=== PATIENT | female | born 1930 | race African-American/Black ===

== ENCOUNTER 2016-06-18 20:08 | Inpatient (IN) | payer OTHER ==
--- NOTE | 2016-06-18 20:36 | PDOC ---
History of Present Illness - General History Source: Patient Exam Limitations: No Limitations - History of Present Illness Initial Comments: 06/18/16 20:54 Patient is a 86 year old female with significant past medical history of dementia, seizures (dx 2 years ago on Keppra), moderate dementia, COPD, hypertension and hyperlipidemia who presents to the ED with daughter with complaint of increasing ataxia and confusion. As per daughter the patient has been having difficulty walking because her gait is unsteady and she notes that she ambulates on her own. Patient also has been having difficulty sleeping Social History: Former smoker 60 yrs 1 1/2 pack a day PCP - Dr. Carranza <Nellie Franco - Last Filed: 06/18/16 23:11> <Deepthi Smith - Last Filed: 06/18/16 23:21> - General Chief Complaint: Altered Mental Status Stated Complaint: Altered Mental Status Time Seen by Provider: 06/18/16 20:15 Past History <Nellie Franco - Last Filed: 06/18/16 23:11> - Past Medical History Cardiac Disorders: Yes Dementia: Yes (FORGETFUL AT TIMES) HTN: Yes Hypercholesterolemia: Yes - Surgical History Cholecystectomy: Yes - Immunization History Immunization Up to Date: Yes - Psycho/Social/Smoking Cessation Hx Anxiety: No Suicidal Ideation: No Smoking Status: No Smoking History: Former smoker Have you smoked in the past 12 months: No Number of Cigarettes Smoked Daily: 4 If you are a former smoker, when did you quit?: 0 Information on smoking cessation initiated: No 'Breaking Loose' booklet given: 12/11/11 Hx Alcohol Use: No Drug/Substance Use Hx: No <Deepthi Smith - Last Filed: 06/18/16 23:21> - Past Medical History Allergies/Adverse Reactions: Allergies Allergy/AdvReac Type Severity Reaction Status Date / Time codeine [Codeine] AdvReac Mild Verified 06/18/16 20:27 propoxyphene HCl AdvReac Mild Verified 06/18/16 20:27 [From Darvon] Home Medications: Ambulatory Orders Aspirin [ASA -] 81 mg PO DAILY 09/25/15 Atenolol [Tenormin -] 25 mg PO BID 09/25/15 Atorvastatin Ca [Lipitor] 20 mg PO HS 09/25/15 Escitalopram Oxalate [Lexapro -] 20 mg PO DAILY 09/25/15 Furosemide [Lasix -] 20 mg PO ASDIR 09/25/15 Multivitamins [Multivit ([facility] Formulary)] 1 tab PO DAILY 09/25/15 [place]-3 Fatty Acids [Fish Oil] 300 mg PO DAILY 09/25/15 Potassium Chloride [Klor-Con 10] 10 meq PO ASDIR 09/25/15 Valsartan 40 mg PO BID 09/25/15 Levetiracetam [Keppra] 0 mg PO ASDIR 02/17/16 Review of Systems - Review of Systems Able to Perform ROS?: Yes Comments:: 06/18/16 20:55 CONSTITUTIONAL: Absent: fever, chills, diaphoresis, generalized weakness, malaise, loss of appetite HEENT: Absent: rhinorrhea, nasal congestion, throat pain, throat swelling, difficulty swallowing, mouth swelling, ear pain, eye pain, visual Changes CARDIOVASCULAR: Absent: chest pain, syncope, palpitations, irregular heart rate, lightheadedness , peripheral edema RESPIRATORY: Absent: cough, shortness of breath, dyspnea with exertion, orthopnea, wheezing, stridor, hemoptysis GASTROINTESTINAL: Absent: abdominal pain, abdominal distension, nausea, vomiting, diarrhea, constipation, melena, hematochezia GENITOURINARY: Absent: dysuria, frequency, urgency, hesitancy, hematuria, flank pain, genital pain MUSCULOSKELETAL: Absent: myalgia, arthralgia, joint swelling SKIN: Absent: rash, itching, pallor HEMATOLOGIC/IMMUNOLOGIC: Absent: easy bleeding, easy bruising, lymphadenopathy, frequent infections ENDOCRINE: Absent: unexplained weight gain, unexplained weight loss, heat intolerance, cold intolerance NEUROLOGIC: Present: confusion, unsteady gait Absent: headache, focal weakness or paresthesias, dizziness, seizure, bladder or bowel incontinence PSYCHIATRIC: Absent: anxiety, depression, suicidal or homicidal ideation, hallucinations. <Nellie Franco - Last Filed: 06/18/16 23:11> *Physical Exam - Vital Signs Last Vital Signs Temp Pulse Resp BP Pulse Ox 99.4 F 104 H 14 191/104 96 06/18/16 20:28 06/18/16 20:28 06/18/16 20:28 06/18/16 20:28 06/18/16 20:28 - Physical Exam Comments: 06/18/16 21:20 GENERAL: +Moderate dementia, poor historian. +follows simple commands, +Awake and alert x1. No acute distress. HEENT: Normocephalic, atraumatic. PERRLA, EOMI. No conjunctival pallor. Sclera are non- icteric. Moist mucous membranes. Oropharynx is clear. NECK: Supple. Full ROM. No JVD. Carotid pulses 2+ and symmetric, without bruits. No thyromegaly. No lymphadenopathy. CARDIOVASCULAR: Regular rate and rhythm. No murmurs, rubs, or gallops. Distal pulses are 2+ and symmetric. PULMONARY: No evidence of respiratory distress. Lungs clear to auscultation bilaterally. No wheezing, rales or rhonchi. ABDOMINAL: +protuberant belly. Soft. Non-tender. Non-distended. No rebound or guarding. No organomegaly. Normoactive bowel sounds. MUSCULOSKELETAL Normal range of motion at all joints. No bony deformities or tenderness. No CVA tenderness. EXTREMITIES: +Weakness in LE, no strength against gravity, +moving of all extremities. No cyanosis. No clubbing. No edema. No calf tenderness. SKIN: Warm and dry. Normal capillary refill. No rashes. No jaundice. NEUROLOGICAL: A&OX1. Cranial nerves 2-12 intact. No deficits to light touch and temperature in face, upper extremities and lower extremities. No motor deficits in the in face, upper extremities and lower extremities. Normoreflexic in the upper and lower extremities. Normal speech. PSYCHIATRIC: Cooperative. Good eye contact. Appropriate mood and affect. <Nellie Franco - Last Filed: 06/18/16 23:11> - Vital Signs Last Vital Signs Temp Pulse Resp BP Pulse Ox 99.4 F 104 H 14 191/104 96 06/18/16 20:28 06/18/16 20:28 06/18/16 20:28 06/18/16 20:28 06/18/16 20:28 <Deepthi Smith - Last Filed: 06/18/16 23:21> ED Treatment Course - LABORATORY CBC & Chemistry Diagram: 06/18/16 21:50 06/18/16 21:50 - ADDITIONAL ORDERS Additional order review: Laboratory Results 06/18/16 20:34 POC Glucometer [id number] 06/18/16 20:34 POC Glucometer [id number] <Nellie Franco - Last Filed: 06/18/16 23:11> - LABORATORY CBC & Chemistry Diagram: 06/18/16 21:50 06/18/16 21:50 <Deepthi Smith - Last Filed: 06/18/16 23:21> Medical Decision Making - Medical Decision Making 06/18/16 23:11 A call was placed to Dr. Mascorro at his service. <Nellie Franco - Last Filed: 06/18/16 23:11> *DC/Admit/Observation/Transfer - Attestations Scribe Attestion: 06/18/16 20:55 Documentation prepared by KORTNEY Majano, acting as medical transport specialist for Deepthi Smith MD. <Nellie Franco - Last Filed: 06/18/16 23:11> - Discharge Dispostion Admit: Yes <Deepthi Smith - Last Filed: 06/18/16 23:21> Diagnosis at time of Disposition: Ataxia, Weakness, Hyperglycemia Hypertension Qualifiers: Hypertension type: unspecified secondary hypertension Qualified Code(s): I15.9 - Secondary hypertension, unspecified; I15 - Secondary hypertension - Referrals Referrals: Andreas Carranza MD [Primary Care Provider] -
[2016-06-18 22:03] LABS: BASOPHIL 0.3 % (0-2.0); EOSINOPHIL 0.2 % (0-4.5); MCH 31.9 pg (25.7-33.7); MCHC 33.2 g/dl (32.0-36.0); MEAN CELL VOLUME 96.2 fl (80-96); MEAN PLT VOLUME 7.5 fl (7.5-11.1); NEUTROPHILS 79.3 % (42.8-82.8); PLATELET COUNT 236 K/MM3 (134-434); RDW 12.9 % (11.6-15.6); WHITE BLOOD COUNT 8.4 K/mm3 (4.0-10.0)
[2016-06-18 22:21] LABS: INR 1.23 (0.82-1.09); PROTHROMBIN TIME (PATIENT) 13.6 SEC (9.98-11.88)
[2016-06-18] MEDS ORDERED: levETIRAcetam 250 MG TABLET (FP) PO ONE (22:33)
[2016-06-18] MEDS ORDERED: ATORVASTATIN CA 20 MG TABLET (FP) PO ONE (22:35)
[2016-06-18] MEDS ORDERED: VALSARTAN 40 MG TABLET (FP) PO ONE (22:35)
[2016-06-18] MEDS ORDERED: ATENOLOL 25 MG TABLET (FP) PO ONE (22:36)
[2016-06-18 22:39] LABS: ALBUMIN 3.8 g/dl (3.4-5.0); ANION GAP 13 (8-16); BILIRUBIN,TOTAL 0.7 mg/dL (0.2-1.0); CALCIUM 8.7 mg/dL (8.5-10.1); CO2 27 mmol/L (21-32); GLUCOSE,RANDOM 174 mg/dL (74-106); SGOT/AST 23 U/L (15-37); SGPT/ALT 26 U/L (12-78); TOT PROT 7.7 g/dl (6.4-8.2)
[2016-06-18 22:42] LABS: ALK PHOS 87 U/L (45-117); TROPONIN I < 0.02 ng/ml (0.00-0.05)
[2016-06-18] MEDS ORDERED: ATORVASTATIN CA 40 MG TABLET (FP) ONE (22:59)
[2016-06-18] MEDS ORDERED: levETIRAcetam 500 MG TABLET (FP) PO ONE (22:59)
[2016-06-18] MEDS ORDERED: ATENOLOL 25 MG TABLET (FP) ONE (22:59)
[2016-06-18] MEDS ORDERED: VALSARTAN 80 MG TABLET (UD) ONE (23:00)
[2016-06-18] MEDS ORDERED: ONDANSETRON 4 MG/2 ML VIAL IVPB PRN (23:20)
[2016-06-19 01:18] VITALS: BMI 28.8
[2016-06-19] MEDS: SODIUM CHLORIDE 1,000 ML IV SCH ×4 (01:38→23:44)
[2016-06-19] MEDS: HEPARIN NA (PORCINE) 5,000 UNITS/ML 1ML VIAL SQ SCH ×3 (01:42→18:00)
[2016-06-19 08:28] LABS: BASOPHIL 0.4 % (0-2.0); EOSINOPHIL 0.1 % (0-4.5); MCH 32.3 pg (25.7-33.7); MCHC 33.6 g/dl (32.0-36.0); MEAN CELL VOLUME 96.1 fl (80-96); MEAN PLT VOLUME 7.9 fl (7.5-11.1); NEUTROPHILS 64.4 % (42.8-82.8); PLATELET COUNT 214 K/MM3 (134-434); RDW 12.9 % (11.6-15.6); WHITE BLOOD COUNT 6.7 K/mm3 (4.0-10.0)
[2016-06-19 09:34] LABS: CALCIUM 8.8 mg/dL (8.5-10.1); CREATININE 0.9 mg/dL (0.55-1.02); MAGNESIUM 2.2 mg/dL (1.8-2.4); PHOSPHOROUS 2.7 mg/dL (2.5-4.9)
[2016-06-19] MEDS ORDERED: PATIENT'S OWN MEDICATION (NON-FORMULARY) (Omega-3 Fatty Acids [Fish Oil] 300 MG) PO SCH (10:00)
[2016-06-19] MEDS ORDERED: PT OWN MED DRAWER 7, Y5N ONE (10:55)
[2016-06-19] MEDS: DOCUSATE SODIUM 100 MG CAPSULE (FP) PO SCH ×2 (10:58→22:35)
[2016-06-19] MEDS: VALSARTAN 40 MG TABLET (FP) PO SCH ×2 (10:58→22:35)
[2016-06-19] MEDS: ASPIRIN COATED 81 MG TABLET.EC PO SCH (10:58)
[2016-06-19] MEDS: levETIRAcetam 250 MG TABLET (FP) PO SCH ×2 (10:58→22:35)
[2016-06-19] MEDS: ATENOLOL 25 MG TABLET (FP) PO SCH ×2 (10:58→22:35)
[2016-06-19] MEDS: ESCITALOPRAM OXALATE 20 MG TABLET (FP) PO SCH (10:58)
[2016-06-19] MEDS: ASPIRIN 81 MG CHEWABLE TABLETS PO SCH (10:58)
[2016-06-19] MEDS: MULTIVITAMINS (DAILY MVI) TABLET (FP) PO SCH (10:59)
[2016-06-19] MEDS: POLYETHYLENE GLYCOL 3350 119 GM BTL PO SCH (11:00)
--- NOTE | 2016-06-19 12:08 | HP ---
Admitting History and Physical - Primary Care Physician PCP: Andreas Carranza - Admission Chief Complaint: My legs are bad History of Present Illness: Ms Guillermo is a pleasant 86 year old female who was brought in by her daughter with confusion and weakness. Patient says that her legs are feeling bad, she says they hurt and are weak. She cannot tell me the exact type of pain or how severe, she says it is in both legs and it hurts. She says she has trouble walking because they feel weak. She denies fevers, lightheadedness, passing out , chest pain, shortness of breath, nausea, vomiting, diarrhea, constipation, difficulty or pain on urination, or weakness. She is very lethargic and often falls asleep during the history. Also she often has trouble recalling answers and frequently answers questions inappropriately (eg she says her legs hurt since she left the hospital and forgot she was in the hospital). Daughter says Ms Guillermo has dementia but it has been well controlled. Yesterday she was very confused and was weak. She was also incontinent of her urine. 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 Cardiovascular: Yes: HTN, Hyperlipdemia - Past Surgical History Additional Past Surgical History: unable to obtain - Smoking History Smoking history: Former smoker Have you smoked in the past 12 months: No Aproximately how many cigarettes per day: 4 If you are a former smoker, when did you quit?: 0 - Alcohol/Substance Use Hx Alcohol Use: No History of Substance Use: reports: None - Social History Usual Living Arrangement: Yes: With Child ADL: Family Assistance History of Recent Travel: No Home Medications - Allergies Allergies/Adverse Reactions: Allergies Allergy/AdvReac Type Severity Reaction Status Date / Time codeine [Codeine] AdvReac Mild Verified 06/18/16 20:27 propoxyphene HCl AdvReac Mild Verified 06/18/16 20:27 [From Darvon] - Home Medications Home Medications: Ambulatory Orders Aspirin [ASA -] 81 mg PO DAILY 09/25/15 Atenolol [Tenormin -] 25 mg PO BID 09/25/15 Atorvastatin Ca [Lipitor] 20 mg PO HS 09/25/15 Escitalopram Oxalate [Lexapro -] 20 mg PO DAILY 09/25/15 Furosemide [Lasix -] 20 mg PO ASDIR 09/25/15 Multivitamins [Multivit ([facility] Formulary)] 1 tab PO DAILY 09/25/15 [place]-3 Fatty Acids [Fish Oil] 300 mg PO DAILY 09/25/15 Potassium Chloride [Klor-Con 10] 10 meq PO ASDIR 09/25/15 Valsartan 40 mg PO BID 09/25/15 Levetiracetam [Keppra] 0 mg PO ASDIR 02/17/16 Family Disease History - Family Disease History Family History: Unable to Obtain Review of Systems Findings/Remarks: Full review of systems obtained, however may be inaccurate secondary to mental status but as per HPI. Physical Examination Vital Signs: Vital Signs Temperature 100.5 F H 06/19/16 09:00 Pulse Rate 89 06/19/16 09:00 Respiratory Rate 18 06/19/16 09:00 Blood Pressure 139/93 06/19/16 09:00 O2 Sat by Pulse Oximetry (%) 95 06/19/16 00:56 Constitutional: Yes: No Distress, Other (lethargic, easily arousable, confused) Eyes: Yes: Conjunctiva Clear, PERRL HENT: Yes: Atraumatic, Normocephalic Cardiovascular: Yes: Regular Rate and Rhythm. No: Gallop, Murmur, Rub Respiratory: Yes: Regular, CTA Bilaterally. No: Rales, Rhonchi, Wheezes Gastrointestinal: Yes: Normal Bowel Sounds, Soft. No: Distention, Tenderness Extremities: Yes: WNL Edema: No Labs: CBC, BMP 06/19/16 06:30 06/19/16 06:30 Imaging - Results Chest X-ray: Report Reviewed, Image Reviewed Cat Scan: Report Reviewed Problem List - Problems (1) SIRS (systemic inflammatory response syndrome) Assessment/Plan: -patient with fevers and AMS, consistent with SIRS -CXR negative -UA negative for signs of infection -gentle hydration -cultures sent -will hold on antibiotics until urine culture results -if positive gram stain or showing growth, will start antibiotics -tylenol for fevers -check flu swab Code(s): R65.10 - SIRS OF NON-INFECTIOUS ORIGIN W/O ACUTE ORGAN DYSFUNCTION (2) Metabolic encephalopathy Assessment/Plan: -secondary to SIRS -gentle hydration -follow up cultures for infectious source Code(s): G93.41 - METABOLIC ENCEPHALOPATHY (3) Ataxia Assessment/Plan: -case d/w neurology -obtain MRI Code(s): R27.0 - ATAXIA, UNSPECIFIED (4) Hypertension Assessment/Plan: -continue valsartan and atenolol Code(s): I10 - ESSENTIAL (PRIMARY) HYPERTENSION Qualifiers: Hypertension type: unspecified secondary hypertension Qualified Code(s) : I15.9 - Secondary hypertension, unspecified; I15 - Secondary hypertension (5) Weakness Assessment/Plan: -PT consulted -fall precautions -neurology evaluating Code(s): R53.1 - WEAKNESS (6) Seizure Assessment/Plan: -continue keppra Code(s): R56.9 - UNSPECIFIED CONVULSIONS
[2016-06-19 12:56] LABS: URINE APPEARANCE CLEAR; URINE BILIRUBIN NEGATIVE (NEGATIVE); URINE COLOR YELLOW; URINE GLUCOSE (UA) NEGATIVE (NEGATIVE); URINE KETONE NEGATIVE (NEGATIVE); URINE LEUK ESTERASE NEGATIVE (NEGATIVE); URINE NITRITE NEGATIVE (NEGATIVE); URINE PROTEIN NEGATIVE (NEGATIVE); URINE UROBILINOGEN NEGATIVE E.U./dl (0.2-1.0)
[2016-06-19 12:57] LABS: URINE BLOOD 1+ (NEGATIVE)
--- NOTE | 2016-06-19 13:29 | CONSULT ---
Consult Consult Specialty:: Neurology Reason for Consultation:: Gait disturbance - History of Present Illness History of Present Illness: 86 year old woman with history of dementia, epilepsy maintained on keppra, COPD , hypertension and hyperlipidemia, presented to the ED with increasing ataxia and confusion. The patient as per records has had increasing difficulty with ambulating and previously was able to ambulate independently. The patient has been having difficulty sleeping and records note confusion. CT head shows no acute changes. Patient at bedside awake, alert, following commands. Able to lift both extremities against gravity but unable to sustain. 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 Cardio/Vascular: Yes: HTN Pulmonary: Yes: COPD - Alcohol/Substance Use Hx Alcohol Use: No - Smoking History Smoking history: Former smoker Have you smoked in the past 12 months: No Aproximately how many cigarettes per day: 4 If you are a former smoker, when did you quit?: 0 Home Medications - Allergies Allergies/Adverse Reactions: Allergies Allergy/AdvReac Type Severity Reaction Status Date / Time codeine [Codeine] AdvReac Mild Verified 06/18/16 20:27 propoxyphene HCl AdvReac Mild Verified 06/18/16 20:27 [From Darvon] - Home Medications Home Medications: Ambulatory Orders Aspirin [ASA -] 81 mg PO DAILY 09/25/15 Atenolol [Tenormin -] 25 mg PO BID 09/25/15 Atorvastatin Ca [Lipitor] 20 mg PO HS 09/25/15 Escitalopram Oxalate [Lexapro -] 20 mg PO DAILY 09/25/15 Furosemide [Lasix -] 20 mg PO ASDIR 09/25/15 Multivitamins [Multivit ([facility] Formulary)] 1 tab PO DAILY 09/25/15 [place]-3 Fatty Acids [Fish Oil] 300 mg PO DAILY 09/25/15 Potassium Chloride [Klor-Con 10] 10 meq PO ASDIR 09/25/15 Valsartan 40 mg PO BID 09/25/15 Levetiracetam [Keppra] 0 mg PO ASDIR 02/17/16 Family Disease History - Family Disease History Family History: Denies Review of Systems - Review of Systems Constitutional: reports: No Symptoms Eyes: reports: No Symptoms HENT: reports: No Symptoms Cardiovascular: reports: No Symptoms Respiratory: reports: No Symptoms Neurological: reports: Unsteady Gait Physical Exam Vital Signs: Vital Signs Temperature 100.5 F H 06/19/16 09:00 Pulse Rate 89 06/19/16 09:00 Respiratory Rate 18 06/19/16 09:00 Blood Pressure 139/93 06/19/16 09:00 O2 Sat by Pulse Oximetry (%) 96 06/19/16 09:00 Constitutional: Yes: No Distress Eyes: Yes: Conjunctiva Clear, EOM Intact HENT: Yes: Atraumatic, Normocephalic Cardiovascular: Yes: S1, S2 Respiratory: Yes: Regular Neurological: Yes: Alert, Cran Nerves II-XII Intact, Other (patient awake, alert , able to follow simple commands blinks to visual threat bilterally, face symmetric, tongue midline moving all extremities spontaneously. can lift both arms against gravity and able to sustain, able to lift but unable to sustain lower extremities against gravity) Labs: CBC, BMP 06/19/16 06:30 06/19/16 06:30 Assessment/Plan 86 year old woman with history of dementia, epilepsy maintained on keppra, COPD , hypertension and hyperlipidemia, presented to the ED with increasing ataxia and confusion. The patient as per records has had increasing difficulty with ambulating and previously was able to ambulate independently. The patient has been having difficulty sleeping and records note confusion. CT head shows no acute changes. Patient at bedside awake, alert, following commands. Able to lift both extremities against gravity but unable to sustain. Gait instability CT head no acute findings Recommend MRI brain without contrast to rule out stroke, if negative will consider MRI L/S spine to rule out spinal stenosis as cause Physical and occupational therapy Confusion, history of dementia Unclear of baseline Recommend infectious workup Will order EEG Will follow
--- NOTE | 2016-06-19 13:31 | EKG ---
Test Reason : Blood Pressure : / mmHG Vent. Rate : 097 BPM Atrial Rate : 097 BPM P-R Int : 162 ms QRS Dur : 104 ms QT Int : 370 ms P-R-T Axes : 061 -06 019 degrees QTc Int : 469 ms NORMAL SINUS RHYTHM POSSIBLE LEFT ATRIAL ENLARGEMENT LEFT VENTRICULAR HYPERTROPHY NONSPECIFIC ST ABNORMALITY ABNORMAL ECG WHEN COMPARED WITH ECG OF 25-SEP-2015 09:00, VENT. RATE HAS INCREASED BY 33 BPM Confirmed by NICOLE SARAVIA MD ([id number]) on 06/19/2016 1:31:01 PM Referred By: Confirmed By:NICOLE SARAVIA MD
[2016-06-19 14:26] LABS: URINE MUCUS FEW; URINE RBC 12 /hpf (0-3); URINE WBC 1 /hpf (3-5)
[2016-06-19] MEDS: ATORVASTATIN CA 20 MG TABLET (FP) PO SCH (22:35)
[2016-06-20] MEDS: ACETAMINOPHEN 325 MG TABLET (FP) PO PRN (01:43)
[2016-06-20] MEDS: HEPARIN NA (PORCINE) 5,000 UNITS/ML 1ML VIAL SQ SCH ×3 (01:44→17:23)
[2016-06-20] MEDS: DOCUSATE SODIUM 100 MG CAPSULE (FP) PO SCH ×2 (10:58→22:10)
[2016-06-20] MEDS: ASPIRIN 81 MG CHEWABLE TABLETS PO SCH (10:58)
[2016-06-20] MEDS: MULTIVITAMINS (DAILY MVI) TABLET (FP) PO SCH (10:58)
[2016-06-20] MEDS: VALSARTAN 40 MG TABLET (FP) PO SCH ×2 (10:58→22:10)
[2016-06-20] MEDS: ASPIRIN COATED 81 MG TABLET.EC PO SCH (10:59)
[2016-06-20] MEDS: levETIRAcetam 250 MG TABLET (FP) PO SCH ×2 (10:59→22:10)
[2016-06-20] MEDS: ATENOLOL 25 MG TABLET (FP) PO SCH ×2 (10:59→22:10)
[2016-06-20] MEDS: ESCITALOPRAM OXALATE 20 MG TABLET (FP) PO SCH (11:00)
[2016-06-20] MEDS: POLYETHYLENE GLYCOL 3350 119 GM BTL PO SCH (11:02)
--- NOTE | 2016-06-20 12:07 | PN ---
Progress Note (short form) - Note Progress Note: Neurology follow up Consult Specialty:: Neurology Reason for Consultation:: Gait disturbance - History of Present Illness History of Present Illness: 86 year old woman with history of dementia, epilepsy maintained on keppra, COPD , hypertension and hyperlipidemia, presented to the ED with increasing ataxia and confusion. The patient as per records has had increasing difficulty with ambulating and previously was able to ambulate independently. The patient has been having difficulty sleeping and records note confusion. CT head shows no acute changes. Patient at bedside awake, alert, following commands. Able to lift both extremities against gravity but unable to sustain. 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: Dementia Cardio/Vascular: Yes: HTN Pulmonary: Yes: COPD - Alcohol/Substance Use Hx Alcohol Use: No - Smoking History Smoking history: Former smoker Have you smoked in the past 12 months: No Aproximately how many cigarettes per day: 4 If you are a former smoker, when did you quit?: 0 Home Medications - Allergies Allergies/Adverse Reactions: Allergies Allergy/AdvReac Type Severity Reaction Status Date / Time codeine [Codeine] AdvReac Mild Verified 06/18/16 20:27 propoxyphene HCl AdvReac Mild Verified 06/18/16 20:27 [From Darvon] - Home Medications Home Medications: Ambulatory Orders Aspirin [ASA -] 81 mg PO DAILY 09/25/15 Atenolol [Tenormin -] 25 mg PO BID 09/25/15 Atorvastatin Ca [Lipitor] 20 mg PO HS 09/25/15 Escitalopram Oxalate [Lexapro -] 20 mg PO DAILY 09/25/15 Furosemide [Lasix -] 20 mg PO ASDIR 09/25/15 Multivitamins [Multivit ([facility] Formulary)] 1 tab PO DAILY 09/25/15 [place]-3 Fatty Acids [Fish Oil] 300 mg PO DAILY 09/25/15 Potassium Chloride [Klor-Con 10] 10 meq PO ASDIR 09/25/15 Valsartan 40 mg PO BID 09/25/15 Levetiracetam [Keppra] 0 mg PO ASDIR 02/17/16 Family Disease History - Family Disease History Family History: Denies Review of Systems - Review of Systems Constitutional: reports: No Symptoms Eyes: reports: No Symptoms HENT: reports: No Symptoms Cardiovascular: reports: No Symptoms Respiratory: reports: No Symptoms Neurological: reports: Unsteady Gait Physical Exam Constitutional: Yes: No Distress Eyes: Yes: Conjunctiva Clear, EOM Intact HENT: Yes: Atraumatic, Normocephalic Cardiovascular: Yes: S1, S2 Respiratory: Yes: Regular Neurological: Yes: Alert, Cran Nerves II-XII Intact, Other (patient awake, alert , able to follow simple commands blinks to visual threat bilterally, face symmetric, tongue midline moving all extremities spontaneously against gravity) Assessment/Plan 86 year old woman with history of dementia, epilepsy maintained on keppra, COPD , hypertension and hyperlipidemia, presented to the ED with increasing ataxia and confusion. The patient as per records has had increasing difficulty with ambulating and previously was able to ambulate independently. The patient has been having difficulty sleeping and records note confusion. Today appears more awake with improvement in neuro exam. CT head shows no acute changes MRI brain no evidence of acute stroke Gait instability, altered mental status Likely related to metabolic encephalopathy in setting of SIRS MRI brain without contrast shows no evidence of acute stroke Continue current medical management Physical therapy Please call if further questions
--- NOTE | 2016-06-20 12:53 | PN ---
Physical Exam: SUBJECTIVE: Patient seen and examined at bedside. Feels a little stronger, walked to the bathroom with assistance. Denies fever, sweats, chills. Denies n/v /d. Has burning on urination and frequency at times, cannot recall if recently. Mild loose cough. 90-pack per year smoker, quit last year. OBJECTIVE: Vital Signs Period Temp Pulse Resp BP Sys/Conner Pulse Ox Last 24 Hr 98.4 F-102.4 F 74-90 18-20 135-147/58-90 94-96 GENERAL: The patient is awake, alert, and fully oriented, in no acute distress. HEAD: Normal with no signs of trauma. EYES: PERRL, extraocular movements intact, sclera anicteric, conjunctiva clear. No ptosis. LUNGS: Bibasilar crackles, no wheezing, no rhonchi, no accessory muscle use. HEART: Regular rate and rhythm, S1, S2 without murmur, rub or gallop. ABDOMEN: Soft, nontender, nondistended, normoactive bowel sounds, no guarding, no rebound, no hepatosplenomegaly, no masses. EXTREMITIES: 2+ pulses, warm, well-perfused, no edema. NEUROLOGICAL: Cranial nerves II through XII grossly intact. Normal speech, gait not observed. Active Medications Generic Name Dose Route Start Last Admin Trade Name Freq PRN Reason Stop Dose Admin Acetaminophen 650 mg 06/18/16 23:20 06/20/16 01:43 Tylenol - PO 650 mg Q4H PRN Administration FEVER OR PAIN Aspirin 81 mg 06/19/16 10:00 06/20/16 10:59 Ecotrin - PO 81 mg DAILY JAME Administration Aspirin 81 mg 06/19/16 10:00 06/20/16 10:58 Asa - PO 81 mg DAILY JAME Administration Atenolol 25 mg 06/19/16 10:00 06/20/16 10:59 Tenormin - PO 25 mg BID JAME Administration Atorvastatin Calcium 20 mg 06/19/16 22:00 06/19/16 22:35 Lipitor - PO 20 mg HS JAME Administration Docusate Sodium 100 mg 06/19/16 10:00 06/20/16 10:58 Colace - PO 100 mg BID JAME Administration Escitalopram Oxalate 20 mg 06/19/16 10:00 06/20/16 11:00 Lexapro - PO 20 mg DAILY JAME Administration Heparin Sodium (Porcine) 5,000 unit 06/19/16 02:00 06/20/16 10:59 Heparin - SQ 5,000 unit Q8H-IV JAME Administration Sodium Chloride 1,000 mls @ 42 mls/hr 06/18/16 23:30 06/19/16 23:44 Normal Saline - IV Not Given ASDIR JAME Levetiracetam 250 mg 06/19/16 10:00 06/20/16 10:59 Keppra - PO 250 mg BID JAME Administration Multivitamins/Minerals/Vitamin C 1 tab 06/19/16 10:00 06/20/16 10:58 Tab-A-Vit - PO 1 tab DAILY JAME Administration Ondansetron HCl 4 mg 06/18/16 23:20 Zofran Injection IVPB Q6H PRN NAUSEA Polyethylene Glycol 17 gm 06/19/16 10:00 06/20/16 11:02 Miralax (For Daily Use) - PO 17 gm DAILY JAME Administration Valsartan 40 mg 06/19/16 10:00 06/20/16 10:58 Diovan - PO 40 mg BID JAME Administration ASSESSMENT/PLAN 86 year-old female with a PMH of HTN, HLD, COPD, seizure disorder, dementia, and migraines, admitted for generalized weakness, ataxia, and mental confusion. SIRS Fever of uncertain etiology Metabolic encephalopathy --spike to 102.4 overnight --blood cultures NGTD --patient complains of dysuria and frequency at times, but cannot recall if recent (confused); UA & UC negative --flu negative; RSV pending; Legionella urine ordered --CXR no focal infiltrates --will get CT chest, abdomen, pelvis Ataxia --CT had and MRI brain show no acute processes --improved today, continue PT Hypertension --BP well-controlled --continue Valsartan, atenolol Hyperlipidemia --continue Lipitor COPD, chronic --CT chest pending --duonebs PRN Seizure disorder --continue Keppra Dementia --on no meds Migraines --continue Lexapro F/E/N Fluids: NS @ 42mL/hr Electrolytes: replete as indicated Nutrition: DVT prophylaxis: subq heparin, oob, ambulation Rehab PT eval Daily PT Dispo: continues to require inpatient care. Full Code. Visit type - Emergency Visit Emergency Visit: Yes ED Registration Date: 06/19/16 Care time: The patient presented to the Emergency Department on the above date and was hospitalized for further evaluation of their emergent condition. - New Patient This patient is new to me today: Yes Date on this admission: 06/20/16 - Critical Care Critical Care patient: No
[2016-06-20] MEDS ORDERED: ALBUTEROL SO4 2.5/IPRATROPIUM 0.5 INH SOL 3 ML VIAL.NEB. NEB PRN (13:15)
[2016-06-20 13:45] LABS: BASOPHIL 0.6 % (0-2.0); EOSINOPHIL 1.2 % (0-4.5); MCH 32.3 pg (25.7-33.7); MCHC 33.4 g/dl (32.0-36.0); MEAN CELL VOLUME 96.7 fl (80-96); MEAN PLT VOLUME 7.5 fl (7.5-11.1); PLATELET COUNT 188 K/MM3 (134-434); RDW 12.9 % (11.6-15.6); WHITE BLOOD COUNT 4.4 K/mm3 (4.0-10.0)
[2016-06-20 14:25] LABS: BILIRUBIN,TOTAL 0.6 mg/dL (0.2-1.0); CALCIUM 8.3 mg/dL (8.5-10.1); CREATININE 1.1 mg/dL (0.55-1.02); MAGNESIUM 2.2 mg/dL (1.8-2.4); PHOSPHOROUS 2.8 mg/dL (2.5-4.9); TOT PROT 6.3 g/dl (6.4-8.2)
[2016-06-20] MEDS: ATORVASTATIN CA 20 MG TABLET (FP) PO SCH (22:10)
[2016-06-21] MEDS: HEPARIN NA (PORCINE) 5,000 UNITS/ML 1ML VIAL SQ SCH ×2 (02:00→09:50)
[2016-06-21 08:09] LABS: BASOPHIL 0.6 % (0-2.0); EOSINOPHIL 1.2 % (0-4.5); MCH 33.4 pg (25.7-33.7); MCHC 34.9 g/dl (32.0-36.0); MEAN CELL VOLUME 95.7 fl (80-96); MEAN PLT VOLUME 7.8 fl (7.5-11.1); NEUTROPHILS 40.4 % (42.8-82.8); PLATELET COUNT 187 K/MM3 (134-434); RDW 12.7 % (11.6-15.6); WHITE BLOOD COUNT 4.8 K/mm3 (4.0-10.0)
[2016-06-21 09:00] LABS: ALBUMIN 2.9 g/dl (3.4-5.0); ALK PHOS 62 U/L (45-117); ANION GAP 10 (8-16); BILIRUBIN,TOTAL 0.7 mg/dL (0.2-1.0); CO2 27 mmol/L (21-32); CREATININE 0.8 mg/dL (0.55-1.02); GLUCOSE,RANDOM 95 mg/dL (74-106); MAGNESIUM 2.1 mg/dL (1.8-2.4); PHOSPHOROUS 2.9 mg/dL (2.5-4.9); SGOT/AST 51 U/L (15-37); SGPT/ALT 41 U/L (12-78)
[2016-06-21] MEDS: ASPIRIN COATED 81 MG TABLET.EC PO SCH (09:50)
[2016-06-21] MEDS: ASPIRIN 81 MG CHEWABLE TABLETS PO SCH (09:50)
[2016-06-21] MEDS: levETIRAcetam 250 MG TABLET (FP) PO SCH ×2 (09:50→21:34)
[2016-06-21] MEDS: ESCITALOPRAM OXALATE 20 MG TABLET (FP) PO SCH (09:50)
[2016-06-21] MEDS: ATENOLOL 25 MG TABLET (FP) PO SCH ×2 (09:50→21:34)
[2016-06-21] MEDS: VALSARTAN 40 MG TABLET (FP) PO SCH ×2 (09:50→21:34)
[2016-06-21] MEDS: MULTIVITAMINS (DAILY MVI) TABLET (FP) PO SCH (09:50)
[2016-06-21] MEDS: DOCUSATE SODIUM 100 MG CAPSULE (FP) PO SCH ×2 (09:50→21:34)
[2016-06-21] MEDS: POLYETHYLENE GLYCOL 3350 119 GM BTL PO SCH (09:55)
--- NOTE | 2016-06-21 13:25 | PN ---
Progress Note, Physician Chief Complaint: ID Patient describes couph chest congestion headaches and weakness loss of balance prior to admission Still congested and couphing Fevers as noted - Current Medication List Current Medications: Active Medications Acetaminophen (Tylenol -) 650 mg PO Q4H PRN PRN Reason: FEVER OR PAIN Last Admin: 06/20/16 01:43 Dose: 650 mg Albuterol/Ipratropium (Duoneb -) 1 amp NEB Q6H PRN PRN Reason: SHORTNESS OF BREATH Aspirin (Ecotrin -) 81 mg PO DAILY [facility] Last Admin: 06/21/16 09:50 Dose: 81 mg Aspirin (Asa -) 81 mg PO DAILY [facility] Last Admin: 06/21/16 09:50 Dose: 81 mg Atenolol (Tenormin -) 25 mg PO BID [facility] Last Admin: 06/21/16 09:50 Dose: 25 mg Atorvastatin Calcium (Lipitor -) 20 mg PO HS [facility] Last Admin: 06/20/16 22:10 Dose: 20 mg Docusate Sodium (Colace -) 100 mg PO BID [facility] Last Admin: 06/21/16 09:50 Dose: 100 mg Escitalopram Oxalate (Lexapro -) 20 mg PO DAILY [facility] Last Admin: 06/21/16 09:50 Dose: 20 mg Heparin Sodium (Porcine) (Heparin -) 5,000 unit SQ Q8H-IV [facility] Last Admin: 06/21/16 09:50 Dose: 5,000 unit Sodium Chloride (Normal Saline -) 1,000 mls @ 42 mls/hr IV ASDIR [facility] Last Admin: 06/19/16 23:44 Dose: Not Given Levetiracetam (Keppra -) 250 mg PO BID [facility] Last Admin: 06/21/16 09:50 Dose: 250 mg Multivitamins/Minerals/Vitamin C (Tab-A-Vit -) 1 tab PO DAILY [facility] Last Admin: 06/21/16 09:50 Dose: 1 tab Ondansetron HCl (Zofran Injection) 4 mg IVPB Q6H PRN PRN Reason: NAUSEA Polyethylene Glycol (Miralax (For Daily Use) -) 17 gm PO DAILY [facility] Last Admin: 06/21/16 09:55 Dose: 17 gm Valsartan (Diovan -) 40 mg PO BID [facility] Last Admin: 06/21/16 09:50 Dose: 40 mg - Objective Vital Signs: Vital Signs Temperature 99.3 F 06/21/16 06:00 Pulse Rate 83 06/21/16 06:00 Respiratory Rate 20 06/21/16 06:00 Blood Pressure 163/81 06/21/16 06:00 O2 Sat by Pulse Oximetry (%) 94 L 06/20/16 21:00 Constitutional: Yes: Well Nourished, No Distress HENT: Yes: WNL, Atraumatic Neck: Yes: WNL, Supple Respiratory: Yes: WNL, Regular, CTA Bilaterally. No: Rales, Rhonchi Gastrointestinal: Yes: WNL, Normal Bowel Sounds. No: Tenderness Edema: No Labs: CBC, BMP 06/21/16 06:30 06/21/16 06:30 INR, PTT INR 1.23 (0.82-1.09) H 06/18/16 21:50 Problem List - Problems (1) Fever Code(s): R50.9 - FEVER, UNSPECIFIED (2) Pneumonia Code(s): J18.9 - PNEUMONIA, UNSPECIFIED ORGANISM Assessment/Plan Microbiology 06/19/16 19:41 Nasopharyngeal Swab Influenza Types A,B Antigen (JOHANA) - Final 06/19/16 19:41 Nasopharyngeal Swab - Final 06/19/16 12:15 Urine - Urine - Catheterized Urine Culture - Final NO GROWTH OBTAINED 06/19/16 19:41 Nasopharyngeal Swab Respiratory Virus Panel - Preliminary 06/19/16 16:00 Blood - Peripheral Venous Blood Culture - Preliminary NO GROWTH OBTAINED AFTER 24 HOURS, INCUBATION TO CONTINUE FOR 4 DAYS. 06/19/16 15:50 Blood - Peripheral Venous Blood Culture - Preliminary NO GROWTH OBTAINED AFTER 24 HOURS, INCUBATION TO CONTINUE FOR 4 DAYS. Laboratory Tests 06/20/16 06/20/16 06/21/16 13:20 13:20 06:30 WBC 4.8 Hgb 13.1 Hct 37.7 Plt Count 187 Monocytes % 16.3 H ESR 20 BUN C-Reactive Protein 1.1 H Total Protein Albumin 06/21/16 06:30 WBC Hgb Hct Plt Count Monocytes % ESR BUN 14 D C-Reactive Protein Total Protein 6.0 L Albumin 2.9 L Assessment Febrile illness with couph congestion fever ? bronchitis vs early pneumonia in this 86 year old heavy smoker Plan Ceftriaxone 1 gram with switch to oral cefuroxime or Vantin if afebrile soon Discussed with Siobhan Melvin MD
[2016-06-21] MEDS: CEFTRIAXONE 50 ML IVPB SCH (15:09)
--- NOTE | 2016-06-21 16:36 | CONS ---
DATE OF CONSULTATION: DATE OF DICTATION: 06/21/2016 INFECTIOUS DISEASE CONSULTATION REASON FOR CONSULTATION: The patient is an 86-year-old female who I am asked to see for evaluation of fever. 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 She is also known to have COPD, hypertension, and hyperlipidemia, and admits to heavy smoking over the past years, having quit several years ago. She was admitted through the emergency room with increasing ataxia and confusion at home. The records indicate difficulty ambulating, and she usually is able to get around without assistance at home living with family members. She had a CAT scan on admission which showed no acute change. Subsequently, she was found to have intermittent low grade temperatures. Cultures were obtained on June 19 which are no growth blood and urine. An influenza screen was also obtained. She has had intermittent fever as high as 101 the following admission. Currently her temperature is 99.3. She appears alert, lucid, and oriented. She notes chest congestion and coughing for several days noting that while home, she was also experiencing headaches but denied any recall of fever. She states she got influenza vaccine this year, and her flu screen here is negative. The patient continues to cough with chest congestion. PAST MEDICAL HISTORY: As noted above. CURRENT MEDICATIONS: Include Diovan, Keppra, lexapro. ALLERGIES: CODEINE. 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 No recent travel. Pets include a dog at home. Denies alcohol use. No history of substance abuse. FAMILY HISTORY: Noncontributory. REVIEW OF SYSTEMS: Respiratory: Chest congestion with nonproductive cough, no hemoptysis. Cardiac: No chest pain, palpitations, syncope, murmur. Gastrointestinal: No weight loss, abdominal pain, nausea, vomiting, diarrhea. Genitourinary: No dysuria, hematuria, urinary frequency. PHYSICAL EXAMINATION: General: She was a pleasant alert woman with a temperature of 99.3, pulse 83, blood pressure 163/81, respirations 20. Neck: Supple with no adenopathy. Lungs: With coarse rhonchi and rales noted in the left chest. Heart: S1, S2. Regular rhythm without audible murmur. Abdomen: Soft. Nontender. No hepatosplenomegaly. Extremities: Without clubbing, cyanosis, or edema. The chest CT scan obtained on the shows atelectasis in the left base with trace pleural effusion, cannot rule out infiltrate. Abdominal CT scan shows no evidence of any acute disease with mention made of some subcutaneous air in the right anterior abdominal wall and stranding on the left, most likely iatrogenic. The white count is 4.8 with a hemoglobin of 13.1, platelets of 187. BUN 14, creatinine 0.8, liver enzymes within normal limits. CRP of 1.1. Sedimentation rate of 20. UA with 12 RBCs, 1 WBC. ASSESSMENT: An 86-year-old female with a history of dementia presents with loss of balance at home with difficulty ambulating, found to be febrile with a history of coughing with chest congestion which preceded her admission. Clinically, patient sounds as though she could have pneumonia. She has chronic obstructive pulmonary disease with a history of heavy smoking. At this point, I would treat her for chronic obstructive pulmonary disease, possible pneumonia. Will give ceftriaxone 1 g IV q.24 hours. If her temperature stays down, she can be switched to an oral cephalosporin such as cefuroxime or Vantin to complete 5-7 day course of treatment. Case was discussed with . RAVEN HERNANDEZ M.D. RENALDO/[id number]
--- NOTE | 2016-06-21 19:27 | PN ---
Physical Exam: SUBJECTIVE: Patient seen and examined OBJECTIVE: Vital Signs Period Temp Pulse Resp BP Sys/Conner Pulse Ox Last 24 Hr 99.1 F-100.6 F 78-84 18-20 158-163/77-81 94-94 GENERAL: The patient is awake, alert, and fully oriented, in no acute distress. HEAD: Normal with no signs of trauma. EYES: PERRL, extraocular movements intact, sclera anicteric, conjunctiva clear. No ptosis. LUNGS: Bibasilar crackles, expiratory wheezing throughout, no accessory muscle use. HEART: Regular rate and rhythm, S1, S2 without murmur, rub or gallop. ABDOMEN: Soft, nontender, nondistended, normoactive bowel sounds, no guarding, no rebound, no hepatosplenomegaly, no masses. EXTREMITIES: 2+ pulses, warm, well-perfused, no edema. NEUROLOGICAL: Cranial nerves II through XII grossly intact. Normal speech, gait not observed. Laboratory Results - last 24 hr 06/21/16 06/21/16 06/21/16 06:30 06:30 12:40 WBC 4.8 RBC 3.94 Hgb 13.1 Hct 37.7 MCV 95.7 MCHC 34.9 RDW 12.7 Plt Count 187 MPV 7.8 Neutrophils % 40.4 L D Lymphocytes % 41.5 H D Monocytes % 16.3 H Eosinophils % 1.2 Basophils % 0.6 Sodium 141 Potassium 3.5 Chloride 104 Carbon Dioxide 27 Anion Gap 10 BUN 14 D Creatinine 0.8 D Creat Clearance w eGFR > 60 Random Glucose 95 D Calcium 8.0 L Phosphorus 2.9 Magnesium 2.1 Total Bilirubin 0.7 AST 51 H ALT 41 Alkaline Phosphatase 62 Creatine Kinase 349 H D Total Protein 6.0 L Albumin 2.9 L Active Medications Generic Name Dose Route Start Last Admin Trade Name Freq PRN Reason Stop Dose Admin Acetaminophen 650 mg 06/18/16 23:20 06/20/16 01:43 Tylenol - PO 650 mg Q4H PRN Administration FEVER OR PAIN Albuterol/Ipratropium 1 amp 06/20/16 13:15 Duoneb - NEB Q6H PRN SHORTNESS OF BREATH Aspirin 81 mg 06/19/16 10:00 06/21/16 09:50 Ecotrin - PO 81 mg DAILY [facility] Administration Aspirin 81 mg 06/19/16 10:00 06/21/16 09:50 Asa - PO 81 mg DAILY [facility] Administration Atenolol 25 mg 06/19/16 10:00 06/21/16 09:50 Tenormin - PO 25 mg BID [facility] Administration Atorvastatin Calcium 20 mg 06/19/16 22:00 06/20/16 22:10 Lipitor - PO 20 mg HS [facility] Administration Docusate Sodium 100 mg 06/19/16 10:00 06/21/16 09:50 Colace - PO 100 mg BID [facility] Administration Escitalopram Oxalate 20 mg 06/19/16 10:00 06/21/16 09:50 Lexapro - PO 20 mg DAILY [facility] Administration Heparin Sodium (Porcine) 5,000 unit 06/19/16 02:00 06/21/16 09:50 Heparin - SQ 5,000 unit Q8H-IV [facility] Administration Sodium Chloride 1,000 mls @ 42 mls/hr 06/18/16 23:30 06/19/16 23:44 Normal Saline - IV Not Given ASDIR [facility] Ceftriaxone Sodium 50 mls @ 100 mls/hr 06/21/16 14:45 06/21/16 15:09 Rocephin 1gm Ivpb (Pre-Docked) IVPB 100 mls/hr DAILY [facility] Administration Levetiracetam 250 mg 06/19/16 10:00 06/21/16 09:50 Keppra - PO 250 mg BID [facility] Administration Multivitamins/Minerals/Vitamin C 1 tab 06/19/16 10:00 06/21/16 09:50 Tab-A-Vit - PO 1 tab DAILY [facility] Administration Ondansetron HCl 4 mg 06/18/16 23:20 Zofran Injection IVPB Q6H PRN NAUSEA Polyethylene Glycol 17 gm 06/19/16 10:00 06/21/16 09:55 Miralax (For Daily Use) - PO 17 gm DAILY [facility] Administration Valsartan 40 mg 06/19/16 10:00 06/21/16 09:50 Diovan - PO 40 mg BID [facility] Administration ASSESSMENT/PLAN: 86 year-old female with a PMH of HTN, HLD, COPD, seizure disorder, dementia, and migraines, admitted for generalized weakness, ataxia, and mental confusion. Community acquired pneumonia --Tm 102.4, lung exam worse today, persistent cough --CT chest cannot r/o infiltrates --start ceftriaxone --ID following Ataxia --CT had and MRI brain show no acute processes --improved, continue PT Hypertension --BP well-controlled --continue Valsartan, atenolol Hyperlipidemia --continue Lipitor COPD, chronic --duonebs PRN Seizure disorder --continue Keppra Dementia --on no meds Migraines --continue Lexapro F/E/N Fluids: PO intake adequate Electrolytes: replete as indicated Nutrition: regular diet DVT prophylaxis: subq heparin, oob, ambulation Rehab PT eval Daily PT Dispo: continues to require inpatient care. Full Code. Visit type - Emergency Visit Emergency Visit: Yes ED Registration Date: 06/19/16 Care time: The patient presented to the Emergency Department on the above date and was hospitalized for further evaluation of their emergent condition. - New Patient This patient is new to me today: No - Critical Care Critical Care patient: No
[2016-06-21] MEDS: ATORVASTATIN CA 20 MG TABLET (FP) PO SCH (21:34)
[2016-06-22] MEDS: HEPARIN NA (PORCINE) 5,000 UNITS/ML 1ML VIAL SQ SCH ×4 (02:00→19:37)
[2016-06-22 08:12] LABS: BASOPHIL 0.6 % (0-2.0); EOSINOPHIL 0.7 % (0-4.5); MCH 32.4 pg (25.7-33.7); MCHC 33.9 g/dl (32.0-36.0); MEAN CELL VOLUME 95.6 fl (80-96); NEUTROPHILS 50.7 % (42.8-82.8); PLATELET COUNT 180 K/MM3 (134-434); RDW 12.3 % (11.6-15.6); WHITE BLOOD COUNT 6.4 K/mm3 (4.0-10.0)
--- NOTE | 2016-06-22 08:53 | PN ---
Progress Note, Physician Chief Complaint: ID Low grade temps sleeping now Up during the night Couphing - Current Medication List Current Medications: Active Medications Acetaminophen (Tylenol -) 650 mg PO Q4H PRN PRN Reason: FEVER OR PAIN Last Admin: 06/20/16 01:43 Dose: 650 mg Albuterol/Ipratropium (Duoneb -) 1 amp NEB Q6H PRN PRN Reason: SHORTNESS OF BREATH Aspirin (Asa -) 81 mg PO DAILY [facility] Last Admin: 06/21/16 09:50 Dose: 81 mg Atenolol (Tenormin -) 25 mg PO BID [facility] Last Admin: 06/21/16 21:34 Dose: 25 mg Atorvastatin Calcium (Lipitor -) 20 mg PO HS [facility] Last Admin: 06/21/16 21:34 Dose: 20 mg Docusate Sodium (Colace -) 100 mg PO BID [facility] Last Admin: 06/21/16 21:34 Dose: 100 mg Escitalopram Oxalate (Lexapro -) 20 mg PO DAILY [facility] Last Admin: 06/21/16 09:50 Dose: 20 mg Heparin Sodium (Porcine) (Heparin -) 5,000 unit SQ Q8H-IV [facility] Last Admin: 06/22/16 02:00 Dose: 5,000 unit Ceftriaxone Sodium (Rocephin 1gm Ivpb (Pre-Docked)) 50 mls @ 100 mls/hr IVPB DAILY [facility] Last Admin: 06/21/16 15:09 Dose: 100 mls/hr Levetiracetam (Keppra -) 250 mg PO BID [facility] Last Admin: 06/21/16 21:34 Dose: 250 mg Multivitamins/Minerals/Vitamin C (Tab-A-Vit -) 1 tab PO DAILY [facility] Last Admin: 06/21/16 09:50 Dose: 1 tab Polyethylene Glycol (Miralax (For Daily Use) -) 17 gm PO DAILY [facility] Last Admin: 06/21/16 09:55 Dose: 17 gm Valsartan (Diovan -) 40 mg PO BID [facility] Last Admin: 06/21/16 21:34 Dose: 40 mg - Objective Vital Signs: Vital Signs Temperature 99.8 F H 06/22/16 06:00 Pulse Rate 85 06/22/16 06:00 Respiratory Rate 20 06/22/16 06:00 Blood Pressure 169/88 06/22/16 06:00 O2 Sat by Pulse Oximetry (%) 94 L 06/21/16 21:00 Constitutional: Yes: Well Nourished, No Distress HENT: Yes: WNL, Atraumatic Neck: Yes: WNL, Supple Cardiovascular: Yes: Regular Rate and Rhythm, S1, S2 Respiratory: Yes: Rales, Rhonchi Gastrointestinal: Yes: Soft. No: Tenderness Edema: No Labs: CBC, BMP 06/22/16 06:05 INR, PTT INR 1.23 (0.82-1.09) H 06/18/16 21:50 Problem List - Problems (1) Fever Code(s): R50.9 - FEVER, UNSPECIFIED (2) Pneumonia Code(s): J18.9 - PNEUMONIA, UNSPECIFIED ORGANISM Assessment/Plan Microbiology 06/19/16 19:41 Nasopharyngeal Swab Influenza Types A,B Antigen (JOHANA) - Final 06/19/16 19:41 Nasopharyngeal Swab - Final 06/19/16 12:15 Urine - Urine - Catheterized Urine Culture - Final NO GROWTH OBTAINED 06/19/16 19:41 Nasopharyngeal Swab Respiratory Virus Panel - Preliminary 06/19/16 16:00 Blood - Peripheral Venous Blood Culture - Preliminary NO GROWTH OBTAINED AFTER 48 HOURS, INCUBATION TO CONTINUE FOR 3 DAYS. 06/19/16 15:50 Blood - Peripheral Venous Blood Culture - Preliminary NO GROWTH OBTAINED AFTER 48 HOURS, INCUBATION TO CONTINUE FOR 3 DAYS. Laboratory Tests 06/21/16 06/22/16 06:30 06:05 WBC 6.4 D Hgb 12.8 Plt Count 180 Creat Clearance w eGFR > 60 Assessment Fever pneumonia Plan Continue current antibiotic Chest tomas Melvin MD
[2016-06-22 08:56] LABS: ALBUMIN 2.8 g/dl (3.4-5.0); ALK PHOS 62 U/L (45-117); ANION GAP 10 (8-16); BILIRUBIN,TOTAL 0.5 mg/dL (0.2-1.0); CALCIUM 7.7 mg/dL (8.5-10.1); CO2 27 mmol/L (21-32); CREATININE 0.7 mg/dL (0.55-1.02); GLUCOSE,RANDOM 105 mg/dL (74-106); SGOT/AST 46 U/L (15-37); SGPT/ALT 42 U/L (12-78)
[2016-06-22] MEDS: levETIRAcetam 250 MG TABLET (FP) PO SCH ×2 (10:11→21:20)
[2016-06-22] MEDS: VALSARTAN 40 MG TABLET (FP) PO SCH ×2 (10:11→21:20)
[2016-06-22] MEDS: CEFTRIAXONE 50 ML IVPB SCH (10:12)
[2016-06-22] MEDS: ASPIRIN 81 MG CHEWABLE TABLETS PO SCH (10:12)
[2016-06-22] MEDS: ATENOLOL 25 MG TABLET (FP) PO SCH ×2 (10:12→21:20)
[2016-06-22] MEDS: ESCITALOPRAM OXALATE 20 MG TABLET (FP) PO SCH (10:12)
[2016-06-22] MEDS: DOCUSATE SODIUM 100 MG CAPSULE (FP) PO SCH ×2 (10:12→21:19)
[2016-06-22] MEDS: MULTIVITAMINS (DAILY MVI) TABLET (FP) PO SCH (10:12)
[2016-06-22] MEDS: POLYETHYLENE GLYCOL 3350 119 GM BTL PO SCH (10:36)
--- NOTE | 2016-06-22 12:16 | PN ---
Physical Exam: SUBJECTIVE: Patient seen and examined. Still coughing. OBJECTIVE: Vital Signs Period Temp Pulse Resp BP Sys/Conner Pulse Ox Last 24 Hr 99.1 F-99.8 F 82-85 18-20 158-169/77-88 94 GENERAL: The patient is awake, alert, and fully oriented, in no acute distress. HEAD: Normal with no signs of trauma. EYES: PERRL, extraocular movements intact, sclera anicteric, conjunctiva clear. No ptosis. LUNGS: Inspiratory and expiratory wheezing HEART: Regular rate and rhythm, S1, S2 without murmur, rub or gallop. ABDOMEN: Soft, nontender, nondistended, normoactive bowel sounds, no guarding, no rebound, no hepatosplenomegaly, no masses. EXTREMITIES: 2+ pulses, warm, well-perfused, no edema. NEUROLOGICAL: Cranial nerves II through XII grossly intact. Normal speech, gait not observed. Laboratory Results - last 24 hr 06/21/16 06/22/16 06/22/16 12:40 06:05 06:05 WBC 6.4 D RBC 3.94 Hgb 12.8 Hct 37.6 MCV 95.6 MCHC 33.9 RDW 12.3 Plt Count 180 MPV 8.0 Neutrophils % 50.7 D Lymphocytes % 35.9 Monocytes % 12.1 H Eosinophils % 0.7 Basophils % 0.6 Sodium 142 Potassium 3.5 Chloride 105 Carbon Dioxide 27 Anion Gap 10 BUN 11 D Creatinine 0.7 Creat Clearance w eGFR > 60 Random Glucose 105 Calcium 7.7 L Magnesium 2.0 Total Bilirubin 0.5 D AST 46 H ALT 42 Alkaline Phosphatase 62 Creatine Kinase 349 H D Total Protein 6.0 L Albumin 2.8 L Active Medications Generic Name Dose Route Start Last Admin Trade Name Freq PRN Reason Stop Dose Admin Acetaminophen 650 mg 06/18/16 23:20 06/20/16 01:43 Tylenol - PO 650 mg Q4H PRN Administration FEVER OR PAIN Albuterol/Ipratropium 1 amp 06/20/16 13:15 Duoneb - NEB Q6H PRN SHORTNESS OF BREATH Aspirin 81 mg 06/19/16 10:00 06/22/16 10:12 Asa - PO 81 mg DAILY [facility] Administration Atenolol 25 mg 06/19/16 10:06/22/16 10:12 Tenormin - PO 25 mg BID [facility] Administration Atorvastatin Calcium 20 mg 06/19/16 22:00 06/21/16 21:34 Lipitor - PO 20 mg HS [facility] Administration Docusate Sodium 100 mg 06/19/16 10:00 06/22/16 10:12 Colace - PO 100 mg BID [facility] Administration Escitalopram Oxalate 20 mg 06/19/16 10:00 06/22/16 10:12 Lexapro - PO 20 mg DAILY [facility] Administration Heparin Sodium (Porcine) 5,000 unit 06/19/16 02:00 06/22/16 10:11 Heparin - SQ 5,000 unit Q8H-IV [facility] Administration Ceftriaxone Sodium 50 mls @ 100 mls/hr 06/21/16 14:45 06/22/16 10:12 Rocephin 1gm Ivpb (Pre-Docked) IVPB 100 mls/hr DAILY [facility] Administration Levetiracetam 250 mg 06/19/16 10:00 06/22/16 10:11 Keppra - PO 250 mg BID [facility] Administration Multivitamins/Minerals/Vitamin C 1 tab 06/19/16 10:00 06/22/16 10:12 Tab-A-Vit - PO 1 tab DAILY [facility] Administration Polyethylene Glycol 17 gm 06/19/16 10:00 06/22/16 10:36 Miralax (For Daily Use) - PO 17 gm DAILY [facility] Administration Valsartan 40 mg 06/19/16 10:00 06/22/16 10:11 Diovan - PO 40 mg BID [facility] Administration ASSESSMENT/PLAN: 86 year-old female with a PMH of HTN, HLD, COPD, seizure disorder, dementia, and migraines, admitted for generalized weakness, ataxia, and mental confusion. Community acquired pneumonia --Tm 99.3, left retrocardiac opacity on today's CXR, persistent cough, lung exam +wheezing --continue ceftriaxone (day #2) --switch duonebs to scheduled administration --daily bedside peakflows --ID following Ataxia --CT had and MRI brain show no acute processes --improved, continue PT Hypertension --BP well-controlled --continue Valsartan, atenolol Hyperlipidemia --continue Lipitor COPD, chronic --duonebs Seizure disorder --continue Keppra Dementia --on no meds Migraines --continue Lexapro F/E/N Fluids: PO intake adequate Electrolytes: replete as indicated Nutrition: regular diet DVT prophylaxis: subq heparin, oob, ambulation Rehab PT eval Daily PT Dispo: continues to require inpatient care. Full Code. Visit type - Emergency Visit Emergency Visit: Yes ED Registration Date: 06/19/16 Care time: The patient presented to the Emergency Department on the above date and was hospitalized for further evaluation of their emergent condition. - New Patient This patient is new to me today: No - Critical Care Critical Care patient: No
[2016-06-22] MEDS: ALBUTEROL SO4 2.5/IPRATROPIUM 0.5 INH SOL 3 ML VIAL.NEB. NEB SCH ×3 (12:50→23:57)
[2016-06-22] MEDS: ACETAMINOPHEN 325 MG TABLET (FP) PO PRN (21:20)
[2016-06-22] MEDS: ATORVASTATIN CA 20 MG TABLET (FP) PO SCH (21:20)
[2016-06-23] MEDS: HEPARIN NA (PORCINE) 5,000 UNITS/ML 1ML VIAL SQ SCH ×3 (02:31→18:12)
[2016-06-23] MEDS: ALBUTEROL SO4 2.5/IPRATROPIUM 0.5 INH SOL 3 ML VIAL.NEB. NEB SCH ×3 (06:21→17:50)
[2016-06-23 08:38] LABS: BASOPHIL 0.5 % (0-2.0); EOSINOPHIL 1.4 % (0-4.5); MCH 32.3 pg (25.7-33.7); MCHC 33.4 g/dl (32.0-36.0); MEAN CELL VOLUME 96.7 fl (80-96); MEAN PLT VOLUME 8.3 fl (7.5-11.1); NEUTROPHILS 38.6 % (42.8-82.8); PLATELET COUNT 170 K/MM3 (134-434); RDW 12.5 % (11.6-15.6)
[2016-06-23 09:30] LABS: ALBUMIN 2.9 g/dl (3.4-5.0); ALK PHOS 60 U/L (45-117); ANION GAP 12 (8-16); BILIRUBIN,TOTAL 0.6 mg/dL (0.2-1.0); CALCIUM 7.9 mg/dL (8.5-10.1); CO2 26 mmol/L (21-32); CREATININE 0.7 mg/dL (0.55-1.02); GLUCOSE,RANDOM 107 mg/dL (74-106); MAGNESIUM 2.3 mg/dL (1.8-2.4); SGOT/AST 39 U/L (15-37); SGPT/ALT 41 U/L (12-78); TOT PROT 5.9 g/dl (6.4-8.2)
[2016-06-23] MEDS: ASPIRIN 81 MG CHEWABLE TABLETS PO SCH (10:46)
[2016-06-23] MEDS: DOCUSATE SODIUM 100 MG CAPSULE (FP) PO SCH ×2 (10:47→21:46)
[2016-06-23] MEDS: levETIRAcetam 250 MG TABLET (FP) PO SCH ×2 (10:47→21:46)
[2016-06-23] MEDS: VALSARTAN 40 MG TABLET (FP) PO SCH ×2 (10:47→21:46)
[2016-06-23] MEDS: POLYETHYLENE GLYCOL 3350 119 GM BTL PO SCH (10:48)
[2016-06-23] MEDS: CEFTRIAXONE 50 ML IVPB SCH (10:48)
[2016-06-23] MEDS: ESCITALOPRAM OXALATE 20 MG TABLET (FP) PO SCH (10:48)
[2016-06-23] MEDS: ATENOLOL 25 MG TABLET (FP) PO SCH ×2 (10:48→21:47)
[2016-06-23] MEDS: MULTIVITAMINS (DAILY MVI) TABLET (FP) PO SCH (10:48)
--- NOTE | 2016-06-23 12:56 | PN ---
Progress Note (short form) - Note Progress Note: No fever Cough persists No and pain or urinary symptoms O/E Heart regular Lungs VB b/l rhonchi and rales+ Abd soft Ext no edema Vital Signs Period Temp Pulse Resp BP Sys/Conner Pulse Ox Last 24 Hr 98.2 F-99.7 F 75-91 16-20 121-187/66-96 94 Current Medications Acetaminophen (Tylenol -) 650 mg PO Q4H PRN PRN Reason: FEVER OR PAIN Last Admin: 06/22/16 21:20 Dose: 650 mg Albuterol/Ipratropium (Duoneb -) 1 amp NEB QIDR [facility] Last Admin: 06/23/16 12:02 Dose: 1 amp Aspirin (Asa -) 81 mg PO DAILY [facility] Last Admin: 06/23/16 10:46 Dose: 81 mg Atenolol (Tenormin -) 25 mg PO BID [facility] Last Admin: 06/23/16 10:48 Dose: 25 mg Atorvastatin Calcium (Lipitor -) 20 mg PO HS [facility] Last Admin: 06/22/16 21:20 Dose: 20 mg Docusate Sodium (Colace -) 100 mg PO BID [facility] Last Admin: 06/23/16 10:47 Dose: 100 mg Escitalopram Oxalate (Lexapro -) 20 mg PO DAILY [facility] Last Admin: 06/23/16 10:48 Dose: 20 mg Heparin Sodium (Porcine) (Heparin -) 5,000 unit SQ Q8H-IV [facility] Last Admin: 06/23/16 10:47 Dose: 5,000 unit Ceftriaxone Sodium (Rocephin 1gm Ivpb (Pre-Docked)) 50 mls @ 100 mls/hr IVPB DAILY [facility] Last Admin: 06/23/16 10:48 Dose: 100 mls/hr Levetiracetam (Keppra -) 250 mg PO BID [facility] Last Admin: 06/23/16 10:47 Dose: 250 mg Multivitamins/Minerals/Vitamin C (Tab-A-Vit -) 1 tab PO DAILY [facility] Last Admin: 06/23/16 10:48 Dose: 1 tab Polyethylene Glycol (Miralax (For Daily Use) -) 17 gm PO DAILY [facility] Last Admin: 06/23/16 10:48 Dose: 17 gm Valsartan (Diovan -) 40 mg PO BID [facility] Last Admin: 06/23/16 10:47 Dose: 40 mg Laboratory Results - last 24 hr 06/23/16 06/23/16 06:00 06:00 WBC 6.0 RBC 3.81 Hgb 12.3 Hct 36.9 MCV 96.7 H MCHC 33.4 RDW 12.5 Plt Count 170 MPV 8.3 Neutrophils % 38.6 L D Lymphocytes % 47.3 H D Monocytes % 12.2 H Eosinophils % 1.4 D Basophils % 0.5 Sodium 144 Potassium 3.3 L Chloride 106 Carbon Dioxide 26 Anion Gap 12 BUN 11 Creatinine 0.7 Creat Clearance w eGFR > 60 Random Glucose 107 H Calcium 7.9 L Magnesium 2.3 Total Bilirubin 0.6 AST 39 H ALT 41 Alkaline Phosphatase 60 Total Protein 5.9 L Albumin 2.9 L (1) SIRS (systemic inflammatory response syndrome) Assessment/Plan: Resolving (2) Metabolic encephalopathy Assessment/Plan: Resolved (4) Hypertension Assessment/Plan: -continue valsartan and atenolol Code(s): I10 - ESSENTIAL (PRIMARY) HYPERTENSION Qualifiers: Hypertension type: unspecified secondary hypertension Qualified Code(s) : I15.9 - Secondary hypertension, unspecified; I15 - Secondary hypertension (5) Weakness Assessment/Plan: OOB Physiotherapy Code(s): R53.1 - WEAKNESS (6) Seizure Assessment/Plan: -continue keppra Code(s): R56.9 - UNSPECIFIED CONVULSIONS 7. Hypokalemia Probably due to Albuterol, replace
[2016-06-23] MEDS: POTASSIUM CHLORIDE TABS 20 MEQ TABLET.ER (FP) PO SCH (17:10)
[2016-06-23] MEDS: ATORVASTATIN CA 20 MG TABLET (FP) PO SCH (21:46)
[2016-06-23] MEDS: ACETAMINOPHEN 325 MG TABLET (FP) PO PRN (21:47)
[2016-06-24] MEDS: ALBUTEROL SO4 2.5/IPRATROPIUM 0.5 INH SOL 3 ML VIAL.NEB. NEB SCH ×6 (00:10→23:43)
[2016-06-24] MEDS: HEPARIN NA (PORCINE) 5,000 UNITS/ML 1ML VIAL SQ SCH ×3 (02:03→17:18)
[2016-06-24] MEDS: ASPIRIN 81 MG CHEWABLE TABLETS PO SCH (10:35)
[2016-06-24] MEDS: DOCUSATE SODIUM 100 MG CAPSULE (FP) PO SCH ×2 (10:35→21:05)
[2016-06-24] MEDS: ATENOLOL 25 MG TABLET (FP) PO SCH ×2 (10:35→21:11)
[2016-06-24] MEDS: levETIRAcetam 250 MG TABLET (FP) PO SCH ×2 (10:35→21:05)
[2016-06-24] MEDS: ESCITALOPRAM OXALATE 20 MG TABLET (FP) PO SCH (10:35)
[2016-06-24] MEDS: VALSARTAN 40 MG TABLET (FP) PO SCH ×2 (10:35→21:05)
[2016-06-24] MEDS: CEFTRIAXONE 50 ML IVPB SCH (10:35)
[2016-06-24] MEDS: POLYETHYLENE GLYCOL 3350 119 GM BTL PO SCH (10:35)
[2016-06-24] MEDS: POTASSIUM CHLORIDE TABS 20 MEQ TABLET.ER (FP) PO SCH (10:35)
[2016-06-24] MEDS: MULTIVITAMINS (DAILY MVI) TABLET (FP) PO SCH (10:35)
--- NOTE | 2016-06-24 12:31 | PN ---
Progress Note (short form) - Note Progress Note: No fever Still wheezing and coughing O/E Heart regular Lungs VB b/l rhonchi+ Abd soft Ext no edema Current Medications Acetaminophen (Tylenol -) 650 mg PO Q4H PRN PRN Reason: FEVER OR PAIN Last Admin: 06/23/16 21:47 Dose: 650 mg Albuterol/Ipratropium (Duoneb -) 1 amp NEB QIDR [facility] Last Admin: 06/24/16 12:29 Dose: 1 amp Aspirin (Asa -) 81 mg PO DAILY [facility] Last Admin: 06/24/16 10:35 Dose: 81 mg Atenolol (Tenormin -) 25 mg PO BID [facility] Last Admin: 06/24/16 10:35 Dose: 25 mg Atorvastatin Calcium (Lipitor -) 20 mg PO HS [facility] Last Admin: 06/23/16 21:46 Dose: 20 mg Docusate Sodium (Colace -) 100 mg PO BID [facility] Last Admin: 06/24/16 10:35 Dose: 100 mg Escitalopram Oxalate (Lexapro -) 20 mg PO DAILY [facility] Last Admin: 06/24/16 10:35 Dose: 20 mg Heparin Sodium (Porcine) (Heparin -) 5,000 unit SQ Q8H-IV [facility] Last Admin: 06/24/16 10:35 Dose: 5,000 unit Ceftriaxone Sodium (Rocephin 1gm Ivpb (Pre-Docked)) 50 mls @ 100 mls/hr IVPB DAILY [facility] Last Admin: 06/24/16 10:35 Dose: 100 mls/hr Levetiracetam (Keppra -) 250 mg PO BID [facility] Last Admin: 06/24/16 10:35 Dose: 250 mg Multivitamins/Minerals/Vitamin C (Tab-A-Vit -) 1 tab PO DAILY [facility] Last Admin: 06/24/16 10:35 Dose: 1 tab Polyethylene Glycol (Miralax (For Daily Use) -) 17 gm PO DAILY [facility] Last Admin: 06/24/16 10:35 Dose: 17 gm Potassium Chloride (K-Dur -) 40 meq PO DAILY [facility] Stop: 06/26/16 15:59 Last Admin: 06/24/16 10:35 Dose: 40 meq Prednisone (Deltasone -) 30 mg PO DAILY [facility] Valsartan (Diovan -) 40 mg PO BID [facility] Last Admin: 06/24/16 10:35 Dose: 40 mg Vital Signs Period Temp Pulse Resp BP Sys/Conner Pulse Ox Last 24 Hr 98.5 F-98.9 F 78-90 18-20 107-178/64-90 94 1) SIRS (systemic inflammatory response syndrome) Assessment/Plan: Resolving (2) Metabolic encephalopathy Assessment/Plan: Resolved (4) Hypertension Assessment/Plan: -continue valsartan and atenolol Code(s): I10 - ESSENTIAL (PRIMARY) HYPERTENSION Qualifiers: Hypertension type: unspecified secondary hypertension Qualified Code(s) : I15.9 - Secondary hypertension, unspecified; I15 - Secondary hypertension (5) Weakness Assessment/Plan: OOB Physiotherapy Code(s): R53.1 - WEAKNESS (6) Seizure Assessment/Plan: -continue keppra Code(s): R56.9 - UNSPECIFIED CONVULSIONS 7. Hypokalemia Probably due to Albuterol, replace 8. COPD. Will start on Prednisone for few days and cont Neb treatment. She just quit smoking one year ago. OP Spirometry.
[2016-06-24] MEDS: predniSONE 10 MG TABLET (UD) PO SCH (12:56)
[2016-06-24] MEDS: ATORVASTATIN CA 20 MG TABLET (FP) PO SCH (21:06)
[2016-06-25] MEDS: HEPARIN NA (PORCINE) 5,000 UNITS/ML 1ML VIAL SQ SCH ×2 (02:12→11:32)
[2016-06-25] MEDS: ALBUTEROL SO4 2.5/IPRATROPIUM 0.5 INH SOL 3 ML VIAL.NEB. NEB SCH ×2 (06:05→11:41)
[2016-06-25] MEDS: ACETAMINOPHEN 325 MG TABLET (FP) PO PRN (08:37)
[2016-06-25 08:56] LABS: MCH 31.9 pg (25.7-33.7); MCHC 33.4 g/dl (32.0-36.0); MEAN CELL VOLUME 95.5 fl (80-96); MEAN PLT VOLUME 7.7 fl (7.5-11.1); PLATELET COUNT 209 K/MM3 (134-434); RDW 12.7 % (11.6-15.6); WHITE BLOOD COUNT 8.5 K/mm3 (4.0-10.0)
[2016-06-25 09:05] LABS: ALK PHOS 61 U/L (45-117); ANION GAP 8 (8-16); BILIRUBIN,TOTAL 0.4 mg/dL (0.2-1.0); CALCIUM 8.4 mg/dL (8.5-10.1); CO2 27 mmol/L (21-32); CREATININE 0.7 mg/dL (0.55-1.02); GLUCOSE,RANDOM 118 mg/dL (74-106); MAGNESIUM 2.1 mg/dL (1.8-2.4); SGOT/AST 47 U/L (15-37); SGPT/ALT 65 U/L (12-78); TOT PROT 6.4 g/dl (6.4-8.2)
[2016-06-25] MEDS: levETIRAcetam 250 MG TABLET (FP) PO SCH (09:12)
[2016-06-25] MEDS: predniSONE 10 MG TABLET (UD) PO SCH (09:12)
[2016-06-25] MEDS: ATENOLOL 25 MG TABLET (FP) PO SCH (09:12)
[2016-06-25] MEDS: ESCITALOPRAM OXALATE 20 MG TABLET (FP) PO SCH (09:12)
[2016-06-25] MEDS: MULTIVITAMINS (DAILY MVI) TABLET (FP) PO SCH (09:12)
[2016-06-25] MEDS: DOCUSATE SODIUM 100 MG CAPSULE (FP) PO SCH (09:13)
[2016-06-25] MEDS: POTASSIUM CHLORIDE TABS 20 MEQ TABLET.ER (FP) PO SCH (09:13)
[2016-06-25] MEDS: ASPIRIN 81 MG CHEWABLE TABLETS PO SCH (09:13)
[2016-06-25] MEDS: VALSARTAN 40 MG TABLET (FP) PO SCH (09:13)
[2016-06-25] MEDS: POLYETHYLENE GLYCOL 3350 119 GM BTL PO SCH (09:14)
[2016-06-25 12:16] LABS: PLATELET ESTIMATE ADEQUATE (NORMAL)
--- NOTE | 2016-06-25 13:28 | PN ---
Progress Note, Physician Chief Complaint: ID Couph improved steroids added No fever - Current Medication List Current Medications: Active Medications Acetaminophen (Tylenol -) 650 mg PO Q4H PRN PRN Reason: FEVER OR PAIN Last Admin: 06/25/16 08:37 Dose: 650 mg Albuterol/Ipratropium (Duoneb -) 1 amp NEB QIDR [facility] Last Admin: 06/25/16 11:41 Dose: 1 amp Aspirin (Asa -) 81 mg PO DAILY [facility] Last Admin: 06/25/16 09:13 Dose: 81 mg Atenolol (Tenormin -) 25 mg PO BID [facility] Last Admin: 06/25/16 09:12 Dose: 25 mg Atorvastatin Calcium (Lipitor -) 20 mg PO HS [facility] Last Admin: 06/24/16 21:06 Dose: 20 mg Docusate Sodium (Colace -) 100 mg PO BID [facility] Last Admin: 06/25/16 09:13 Dose: 100 mg Escitalopram Oxalate (Lexapro -) 20 mg PO DAILY [facility] Last Admin: 06/25/16 09:12 Dose: 20 mg Heparin Sodium (Porcine) (Heparin -) 5,000 unit SQ Q8H-IV [facility] Last Admin: 06/25/16 11:32 Dose: 5,000 unit Levetiracetam (Keppra -) 250 mg PO BID [facility] Last Admin: 06/25/16 09:12 Dose: 250 mg Multivitamins/Minerals/Vitamin C (Tab-A-Vit -) 1 tab PO DAILY [facility] Last Admin: 06/25/16 09:12 Dose: 1 tab Polyethylene Glycol (Miralax (For Daily Use) -) 17 gm PO DAILY [facility] Last Admin: 06/25/16 09:14 Dose: 17 gm Potassium Chloride (K-Dur -) 40 meq PO DAILY [facility] Stop: 06/26/16 15:59 Last Admin: 06/25/16 09:13 Dose: 40 meq Prednisone (Deltasone -) 30 mg PO DAILY [facility] Last Admin: 06/25/16 09:12 Dose: 30 mg Valsartan (Diovan -) 40 mg PO BID [facility] Last Admin: 06/25/16 09:13 Dose: 40 mg - Objective Vital Signs: Vital Signs Temperature 98.5 F 06/25/16 08:35 Pulse Rate 90 06/25/16 08:35 Respiratory Rate 18 06/25/16 08:35 Blood Pressure 190/115 06/25/16 08:35 O2 Sat by Pulse Oximetry (%) 96 06/25/16 12:31 Constitutional: Yes: Well Nourished, No Distress Respiratory: Yes: WNL, Regular, CTA Bilaterally, Rales Gastrointestinal: Yes: WNL, Normal Bowel Sounds, Soft Labs: CBC, BMP 06/25/16 08:10 06/25/16 08:10 INR, PTT INR 1.23 (0.82-1.09) H 06/18/16 21:50 Problem List - Problems (1) Fever Code(s): R50.9 - FEVER, UNSPECIFIED (2) Pneumonia Code(s): J18.9 - PNEUMONIA, UNSPECIFIED ORGANISM Assessment/Plan Laboratory Tests 06/25/16 06/25/16 08:10 08:10 WBC 8.5 D Hgb 12.1 Hct 36.3 Plt Count 209 D BUN 8 D Creatinine 0.7 Creat Clearance w eGFR > 60 Assessment Pneumonia improved Plan Oral levofloxacin 500mg daily x 3 days only Olegario MALONEY
--- NOTE | 2016-06-25 14:07 | DS ---
Physical Exam: SUBJECTIVE: Patient seen and examined OBJECTIVE: Vital Signs Period Temp Pulse Resp BP Sys/Conner Pulse Ox Last 24 Hr 98.2 F-98.9 F 80-97 18-20 155-190/85-115 96-97 PHYSICAL EXAM GENERAL: The patient is awake, alert, and fully oriented, in no acute distress. HEAD: Normal with no signs of trauma. EYES: PERRL, extraocular movements intact, sclera anicteric, conjunctiva clear. No ptosis. LUNGS: CTA HEART: Regular rate and rhythm, S1, S2 without murmur, rub or gallop. ABDOMEN: Soft, nontender, nondistended, normoactive bowel sounds, no guarding, no rebound, no hepatosplenomegaly, no masses. EXTREMITIES: 2+ pulses, warm, well-perfused, no edema. NEUROLOGICAL: Cranial nerves II through XII grossly intact. Normal speech, gait not observed. Laboratory Results - last 24 hr 06/25/16 06/25/16 08:10 08:10 WBC 8.5 D RBC 3.80 Hgb 12.1 Hct 36.3 MCV 95.5 MCHC 33.4 RDW 12.7 Plt Count 209 D MPV 7.7 Neutrophils % 62.0 D Lymphocytes % 31.0 D Monocytes % 7.0 Differential Comment Manual diff done Platelet Estimate Adequate Sodium 144 Potassium 3.7 Chloride 109 H Carbon Dioxide 27 Anion Gap 8 BUN 8 D Creatinine 0.7 Creat Clearance w eGFR > 60 Random Glucose 118 H Calcium 8.4 L Magnesium 2.1 Total Bilirubin 0.4 D AST 47 H D ALT 65 D Alkaline Phosphatase 61 Total Protein 6.4 Albumin 3.0 L HOSPITAL COURSE: Date of Admission:06/19/16 Date of Discharge: 06/25/16 86 year-old female with a PMH of HTN, HLD, COPD, seizure disorder, dementia, and migraines, admitted for generalized weakness, ataxia, and mental confusion. Community acquired pneumonia --left retrocardiac opacity on CXR --treated with ceftriaxone x 4 days; discharged on levofloxacin --treated with duonebs Ataxia --CT head and MRI brain showed no acute processes --improved, worked with PT Hypertension --BP well-controlled --continued Valsartan, atenolol Hyperlipidemia --continued Lipitor COPD, chronic --duonebs Seizure disorder --continued Keppra Dementia --on no meds Migraines --continued Lexapro Minutes to complete discharge: 35 Discharge Summary Reason For Visit: HYPERTENISON/ATAXIA/HYPERGLYCEMIA/WEAKNESS Current Active Problems Ataxia (Acute) Fever (Acute) Hyperglycemia (Acute) Hypertension (Acute) Metabolic encephalopathy (Acute) Pneumonia (Acute) SIRS (systemic inflammatory response syndrome) (Acute) Seizure (Acute) Weakness (Acute) Condition: Improved - Instructions Diet, Activity, Other Instructions: Three prescriptions have been sent to your pharmacy. One is for a Medrol Dos-Timothy , one is for an inhaler, and one is for an antibiotic. Take these medications as directed. It is very important you folllow up with you primary care provider within 72 hours of your discharge. activity as tolerated may take a shower low sodium diet Referrals: Andreas Carranza MD [Primary Care Provider] - Disposition: LONG-TERM FACILITY - Home Medications Comprehensive Discharge Medication List: Ambulatory Orders Aspirin [ASA -] 81 mg PO DAILY 09/25/15 Atenolol [Tenormin -] 25 mg PO BID 09/25/15 Atorvastatin Ca [Lipitor] 20 mg PO HS 09/25/15 Escitalopram Oxalate [Lexapro -] 20 mg PO DAILY 09/25/15 Furosemide [Lasix -] 20 mg PO ASDIR 09/25/15 Multivitamins [Multivit ([facility] Formulary)] 1 tab PO DAILY 09/25/15 [place]-3 Fatty Acids [Fish Oil] 300 mg PO DAILY 09/25/15 Potassium Chloride [Klor-Con 10] 10 meq PO ASDIR 09/25/15 Valsartan 40 mg PO BID 09/25/15 Levetiracetam [Keppra] 0 mg PO ASDIR 02/17/16 Cholecalciferol (Vitamin D3) [Vitamin D -] 1,000 unit PO DAILY 06/20/16 Methylprednisolone [Medrol Dose Timothy] 4 mg PO ASDIR #21 tablet 06/25/16 Tiotropium [place] [Spiriva] 1 inh PO DAILY #30 inhaler 06/25/16 This patient is new to me today: No Emergency Visit: Yes ED Registration Date: 06/19/16 Care time: The patient presented to the Emergency Department on the above date and was hospitalized for further evaluation of their emergent condition. Critical Care patient: No - Discharge Referral Referred to [facility] No
[2016-06-25 14:37] VITALS: TEMP 98.7
[2016-06-25 15:30] VITALS: BP 159/88; PULSE 84
== END 2016-06-25 15:38 | DRG 70 ==
LOC: JER 20:08 → JERBED 23:21 → INTOOBSV 23:31 → UNDOADMOB 23:31 → J8W 06-19 00:53 → OBSVTOIN 06-19 16:30
PROVIDERS: ADMIT Internal Medicine; ATTEND Nurse Practitioner Acute Care
DX: G93.41 Metabolic encephalopathy (principal); J18.9 Pneumonia, unspecified organism; E87.6 Hypokalemia; J44.9 Chronic obstructive pulmonary disease, unspecified; F03.90 Unspecified dementia, unspecified severity, without behavioral disturbance, psychotic disturbance, mood disturbance, and anxiety; I10 Essential (primary) hypertension; E78.5 Hyperlipidemia, unspecified; Z87.891 Personal history of nicotine dependence; R27.0 Ataxia, unspecified; G40.909 Epilepsy, unspecified, not intractable, without status epilepticus; G43.909 Migraine, unspecified, not intractable, without status migrainosus
CPT/HCPCS: 36415; 70450-TC; 70551-TC; 71010-TC; 71260-TC; 74177-TC; 80048; 80053; 81003; 81015; 82550; 82553; 83735; 84100; 84484; 85025; 85610; 85651; 86140; 86850; 86900; 86901; 87040; 87086; 87254; 87804; 87899; 93005; 93010; 94150; 94640; 95816; 97116-GP; 99281-25; G0378; J1644; Q9967

== ENCOUNTER 2017-07-15 12:24 | Emergency (ER) | payer OTHER ==
[2017-07-15] MEDS ORDERED: SODIUM CHLORIDE 1,000 ML IV SCH (12:30)
--- NOTE | 2017-07-15 12:33 | PDOC ---
History of Present Illness - General History Source: Patient, Family Exam Limitations: Dementia - History of Present Illness Initial Comments: This is an 87 YOF with h/o migraines, seizures, HTN, and HLD who p/w right- sided weakness since this morning at 9:30 am. The family notes that the patient was last seen at her normal baseline yesterday night 9:15 am today. The caregiver states that when she arrived at the patient's residence this morning, the patient was able to walk to the door to let her in unassisted. At that time , the patient stated that she had wet herself. The caregiver observed her to sit up at the kitchen table unassisted and feed herself without issue at that time. Then at 9:30 am, the son arrived and together they were attempting to bring the patient to change her clothing, but the patient was unable to move her right leg or to walk. <Tressa Mccrary - Last Filed: 07/15/17 13:48> <Mera Ellis - Last Filed: 07/15/17 14:30> - General Stated Complaint: POSS CVA Time Seen by Provider: 07/15/17 12:28 Past History - Past Medical History Cardiac Disorders: Yes COPD: Yes Dementia: Yes (FORGETFUL AT TIMES) HTN: Yes Hypercholesterolemia: Yes Seizures: Yes - Surgical History Cholecystectomy: Yes - Immunization History Immunization Up to Date: Yes - Suicide/Smoking/Psychosocial Hx Smoking Status: No Smoking History: Former smoker Have you smoked in the past 12 months: No Number of Cigarettes Smoked Daily: 4 If you are a former smoker, when did you quit?: 0 'Breaking Loose' booklet given: 12/11/11 Hx Alcohol Use: No Drug/Substance Use Hx: No <Tressa Mccrary - Last Filed: 07/15/17 13:48> <Mera Ellis - Last Filed: 07/15/17 14:30> - Past Medical History Allergies/Adverse Reactions: Allergies Allergy/AdvReac Type Severity Reaction Status Date / Time codeine [Codeine] Allergy Mild Verified 07/15/17 12:42 propoxyphene HCl Allergy Mild Verified 07/15/17 12:42 [From [place]] Home Medications: Ambulatory Orders Aspirin [ASA -] 81 mg PO DAILY 07/15/17 Atenolol [Tenormin -] 25 mg PO BID 07/15/17 Atorvastatin Calcium [Lipitor] 10 mg PO DAILY 07/15/17 Escitalopram Oxalate [Lexapro -] 20 mg PO DAILY 07/15/17 Furosemide 20 mg PO DAILY 07/15/17 Multivit-Min/Iron Fum/Folic AC [Mxbng-Cjxrmeo-Lkrursjr Tablet] 1 each PO DAILY 07/15/17 [place]-3 Fatty Acids/Fish Oil [Fish Oil 1,000 mg Capsule] 1 each PO DAILY Potassium Chloride 10 meq PO DAILY 07/15/17 Valsartan 40 mg PO BID 07/15/17 levETIRAcetam [Keppra -] 250 mg PO BID 07/15/17 Review of Systems - Review of Systems Able to Perform ROS?: Yes Constitutional: No: Chills, Fever, Unexplained wgt Loss HEENTM: No: Nose Congestion, Throat Pain Respiratory: No: Cough, Shortness of Breath Cardiac (ROS): No: Chest Pain, Palpitations ABD/GI: No: Constipated, Diarrhea, Nausea, Vomiting : No: Burning, Dysuria Musculoskeletal: No: Back Pain, Neck Pain Integumentary: No: Bruising, Rash Neurological: No: Headache, Numbness, Tingling, Weakness, Dizziness Endocrine: No: Unexplained Weight Gain, Unexplained Weight Loss <Tressa Mccrary - Last Filed: 07/15/17 13:48> *Physical Exam - Vital Signs Last Vital Signs Temp Pulse Resp BP Pulse Ox 98 F 69 18 173/102 100 07/15/17 13:44 07/15/17 14:22 07/15/17 14:22 07/15/17 14:22 07/15/17 14:22 <Mera Ellis - Last Filed: 07/15/17 14:30> ED Treatment Course - LABORATORY CBC & Chemistry Diagram: 07/15/17 12:50 07/15/17 12:50 <Tressa Mccrary - Last Filed: 07/15/17 13:48> - LABORATORY CBC & Chemistry Diagram: 07/15/17 12:50 07/15/17 12:50 - ADDITIONAL ORDERS Additional order review: Laboratory Results 07/15/17 07/15/17 07/15/17 12:50 12:50 12:33 PT with INR 12.50 H INR 1.11 Sodium 143 Potassium 4.2 Chloride 107 Carbon Dioxide 32 Anion Gap 4 L BUN 12 Creatinine 0.8 Creat Clearance w eGFR > 60 Random Glucose 141 H Calcium 8.6 Total Bilirubin 0.4 AST 12 L ALT 14 Alkaline Phosphatase 77 Creatine Kinase 39 Troponin I < 0.02 Total Protein 6.4 Albumin 3.2 L Triglycerides 135 Cholesterol 116 Total LDL Cholesterol 80 HDL Cholesterol 33 L Blood Type Cancelled Antibody Screen Cancelled 07/15/17 11:48 PT with INR INR Sodium Potassium Chloride Carbon Dioxide Anion Gap BUN Creatinine Creat Clearance w eGFR Random Glucose Calcium Total Bilirubin AST ALT Alkaline Phosphatase Creatine Kinase Troponin I Total Protein Albumin Triglycerides Cholesterol Total LDL Cholesterol HDL Cholesterol Blood Type Cancelled Antibody Screen Cancelled 07/15/17 12:50 RBC 3.81 MCV 98.6 H MCHC 33.6 RDW 12.8 MPV 7.6 Neutrophils % 53.4 Lymphocytes % 29.9 Monocytes % 11.7 H Eosinophils % 4.0 D Basophils % 1.0 - RADIOLOGY Radiology Studies Ordered: Category Date Time Status HEAD CT (STROKE) [CT] Stat CT Scan 07/15/17 12:28 Completed - Medications Given in the ED: ED Medications Discontinued Medications Generic Name Dose Route Start Last Admin Trade Name Freq PRN Reason Stop Dose Admin Alteplase, Recombinant 7.65 mg 07/15/17 13:22 07/15/17 13:44 Tpa - IV 07/15/17 13:23 7.65 mg ONCE ONE Administration Alteplase, Recombinant 68.9 mg 07/15/17 13:24 07/15/17 13:45 Tpa - IVPB 07/15/17 13:25 68.9 mg ONCE ONE Administration <Mera Ellis - Last Filed: 07/15/17 14:30> Medical Decision Making - Medical Decision Making 07/15/17 12:[address] Muniz regarding timing and potential treatment. Recommends pinpointing timing and discussing thrombectomy transfer possibility with family. Will call Dr. Muniz back with decisions on timing and family's thoughts on treatment aggressiveness. 07/15/17 13:21 Dr. Ellis and I spoke with Dr. Muniz who does recommend transfer to [facility] to CV neurosurgeon Edward Reid. Dr. Muniz is contacting Dr. Reid and Dr. Reid will call back to the ED. Dr. Muniz recommends tPA bolus and drip; these are ordered. First type and screen hemolyzed; drawing a second. 07/15/17 13:45 Consent signed for tPA by patient's daughter Lucille Guillermo ([phone]). Rt hand line flushed, tPA pushed by myself over 1 minute, line flushed again. 07/15/17 13:58 EMS arrived to take patient to [facility], ED-ED transfer. Stoke code to be activated on her arrival at [facility], will get CTA then go to endovascular suite. <DemetraTressa - Last Filed: 07/15/17 13:48> *DC/Admit/Observation/Transfer - Transfer to Acute Care Facility Receiving Facility: [facility] Accepting Physician:: Edward Reid <Tressa Mccrary - Last Filed: 07/15/17 13:48> <Mera Ellis - Last Filed: 07/15/17 14:30> Diagnosis at time of Disposition: Cerebrovascular accident (CVA) Qualifiers: CVA mechanism: unspecified Qualified Code(s): I63.9 - Cerebral infarction, unspecified - Discharge Dispostion Disposition: TRANSFER ACUTE CARE/OTHER HOSP Condition at time of disposition: Guarded NIH Stroke Scale - Last Known Well Date/Time & Onset Date Last Known Well: 07/15/17 Time Last Known Well: 09:30 - Initial Evaluation Level of consciousness: Alert Ask patient the month and their age: Both incorrect Ask patient to open & close eyes; make fist and let go: Obeys both correctly Best gaze (horizontal eye movement): Partial gaze palsy Visual field testing: No visual field loss Facial paresis (Show teeth/raise eyebrows/close eyes tight): Minor paralysis ( flattened nasolabial fold, asymmetry on smiling) Motor Function: Left Arm: Normal Motor Function: Right Arm: Some effort against gravity Motor Function: Left Leg: Drift Motor Function: Right Leg: No movement Limb Ataxia: Present in one limb (LRE paralysis) Sensory(Use pinprick test arms,legs,trunk,face/side to side): Normal Best language (Describe picture, name items, read sentences): No Aphasia Dysarthria (read several words): Normal articulation Extinction and Inattention: No abnormality - Total Score NIH Stroke Scale Score: 12 <Tressa Mccrary - Last Filed: 07/15/17 13:48>
[2017-07-15 13:01] VITALS: BMI 29.4
[2017-07-15 13:04] LABS: HEMATOCRIT 37.6 % (32.4-45.2); HEMOGLOBIN 12.6 GM/dL (10.7-15.3); LYMPH % 29.9 % (8-40); MCH 33.1 pg (25.7-33.7); MCHC 33.6 g/dl (32.0-36.0); MEAN CELL VOLUME 98.6 fl (80-96); MEAN PLT VOLUME 7.6 fl (7.5-11.1); MONO % 11.7 % (3.8-10.2); NEUT % 53.4 % (42.8-82.8); PLATELET COUNT 238 K/MM3 (134-434); RBC 3.81 M/mm3 (3.60-5.2); RDW 12.8 % (11.6-15.6); WHITE BLOOD COUNT 6.9 K/mm3 (4.0-10.0)
[2017-07-15 13:15] LABS: CHLORIDE 107 mmol/L (98-107); POTASSIUM 4.2 mmol/L (3.5-5.1); SODIUM 143 mmol/L (136-145)
[2017-07-15 13:17] LABS: INR 1.11 (0.82-1.09); PROTHROMBIN TIME (PATIENT) 12.5 SEC (9.98-11.88)
[2017-07-15 13:21] LABS: ALBUMIN 3.2 g/dl (3.4-5.0); ANION GAP 4 (8-16); BILIRUBIN,TOTAL 0.4 mg/dL (0.2-1.0); BLOOD UREA NITROGEN 12 mg/dL (7-18); CALCIUM 8.6 mg/dL (8.5-10.1); CHOLESTEROL 116 mg/dL (50-200); CO2 32 mmol/L (21-32); CREATININE 0.8 mg/dL (0.55-1.02); GLUCOSE,RANDOM 141 mg/dL (74-106); LDL CHOLESTEROL (ONLY SJRH) 80 mg/dL (5-100); SGOT/AST 12 U/L (15-37); SGPT/ALT 14 U/L (12-78); TOT PROT 6.4 g/dl (6.4-8.2); TRIGLYCERIDES 135 mg/dL (35-160)
[2017-07-15] MEDS ORDERED: ALTEPLASE 50 MG VIAL IV ONE (13:22)
[2017-07-15 13:23] LABS: ALK PHOS 77 U/L (45-117); HDL CHOLESTEROL 33 mg/dL (40-60)
[2017-07-15] MEDS ORDERED: ALTEPLASE 50 MG VIAL IVPB ONE (13:24)
[2017-07-15] MEDS ORDERED: ALTEPLASE 100MG 100 MG IVPB ONE (13:26)
--- NOTE | 2017-07-15 13:27 | PDOC ---
Attending Attestation - Resident Resident Name: Tressa Mccrary - ED Attending Attestation I have performed the following: I have examined & evaluated the patient, The case was reviewed & discussed with the resident, I agree w/resident's findings & plan, Exceptions are as noted - HPI HPI: 07/15/17 14:01 87-year-old female with a history of seizures, migraines, hypertension and high cholesterol here today with acute onset of right-sided weakness. Initial story per EMS the patient was last seen normal on evening prior however further history from the patient's home health aide is that the patient was seen normal and ambulating this a.m. and then was acutely noted at 9:30 AM to have right- sided weakness patient is now having complete right lower extremity weakness and partial right arm weakness as well as some change to her face no noted change to her speech. The patient was last seen normal at 9:15 AM when she came to the table T breakfast no known witnessed seizures no recent surgeries. Here to provide additional history is the patient's daughter and son who states that they do appreciated the patient has right-sided weakness which is new and a new change to the left nasal labial fold flattening - Physicial Exam PE: 07/15/17 14:03 Patient is awake and alert no acute distress there is noted mild left nasal labial fold flattening. The lungs are clear bilaterally heart is regular without any murmurs rubs or gallops abdomen is soft and nontender extremities are warm and well perfused neuro exam is noted for mild left facial weakness extraocular motions are intact however patient does have a partial palsy when looking forward. The right arm is noted to have a drift against gravity the right leg is complete paralysis the left leg is also noted for a drift but much stronger than the right. Sensation she reports is intact total stroke scale is 12 - Medical Decision Making 07/15/17 14:04 87-year-old acute onset right-sided weakness. Last normal initially was presented as a night prior however further discussion reveals patient was last normal 9:15 AM discussion with the patient's family inclusive of her daughter and son it was explained risks and benefits of TPA relative risk of the patient' s age and prolonged onset over 3 hours with this point the family however due to the fact that she is within the 4-1/2 hour etelvina and the detrimental complete right-sided weakness severe decision was made to give TPA family is in agreement scented signed written consent prior to giving the medication. Dr. Vahe Loyd is present evaluate the patient in the ED. Patient was scheduled for transferred to [place] under the care of Dr. Reid the neurosurgeon for possible thrombectomy. Transfer was immediate therefore CTA will be obtained at the receiving institution. Heart Score/ECG Review #1 General ECG Interpretation: Sinus Rhythm, Normal Rate (69), Normal Intervals, No acute ischemic changes NIH Stroke Scale - Last Known Well Date/Time & Onset Date Last Known Well: 07/15/17 Time Last Known Well: 09:15 - Initial Evaluation Level of consciousness: Alert Ask patient the month and their age: Both incorrect Ask patient to open & close eyes; make fist and let go: Obeys both correctly Best gaze (horizontal eye movement): Partial gaze palsy (unable to look up) Visual field testing: No visual field loss Facial paresis (Show teeth/raise eyebrows/close eyes tight): Minor paralysis ( flattened nasolabial fold, asymmetry on smiling) (left nasolabial fold flattening) Motor Function: Left Arm: Normal Motor Function: Right Arm: Some effort against gravity Motor Function: Left Leg: Drift Motor Function: Right Leg: No effort against gravity Limb Ataxia: Present in one limb (right leg paralysis) Sensory(Use pinprick test arms,legs,trunk,face/side to side): Normal Best language (Describe picture, name items, read sentences): No Aphasia Dysarthria (read several words): Mild to moderate slurring of words Extinction and Inattention: No abnormality - Total Score NIH Stroke Scale Score: 12
--- NOTE | 2017-07-15 13:31 | PDOC ---
tPA Exclusion Checklist 0-3hr - Time Elapsed Date last known well: 07/15/17 Time last known well: 15:00 Elaspsed time: Day(s) and Hour(s) and -92 Minutes - Thrombolytic Therapy Candidate Is the patient eligible for Thrombolytic Therapy?: Yes - Exclusion Criteria 0-3hr SBP greater than 185 or DBP greater than 110mmHg despite tx: No Recent IC/spinal surgery,head trauma or stroke w/in last 3mo: No tPA Exclusion checklist 3-4.5h - Time Elapsed Date last known well: 07/15/17 Time last known well: 15:00 Elaspsed time: Day(s) and Hour(s) and -92 Minutes - Thrombolytic Therapy Candidate Is patient eligible for thrombolytic therapy: Yes - Exclusion Criteria 3-4.5 hr SBP greater than 185 or DBP greater than 110mmHg despite tx: No Recent IC/spinal surgery,head trauma or stroke<3mos.: No Hx IC hemorrhage, IC neoplasm, AV malformation or aneurysm: No Active internal bleeding: No Blding diathesis(low plt ct, inc PTT,INR>1.7 or use of NOAC): No Symptoms suggest subarachnoid hemorrhage: No CT demonstrates multilobar infarct(>1/3 cerebral hemiphere): No Arterial puncture at noncompressible site in previous 7 days: No Blood glucose concentration less than 50mg/dL (2.7mmol/L): No - Relative Exclusion Criteria 3-4.5 hr Life expectancy <1 yr or severe co-morbid illness: No : No Patient/family refused: No Rapid improvement: No Stroke severity too mild: No Recent acute ND (w/in previous 3 months): No Seizure at onset with postictal residual neuro impairments: No Major surgery or serious trauma w/in previous 14 days: No Recent GI or hemorrhage (w/in previous 21 days): No - Add'l Relative Exclusion 3-4.5 hr Age > 80: Yes Hx of both diabetes AND prior ischemic stroke: No Taking an oral anticoagulant regardless of INR: No NIHSS >25: No
[2017-07-15 14:07] VITALS: PULSE 69; TEMP 98
--- NOTE | 2017-07-15 14:11 | CONSULT ---
Consult - text type - Consultation Consultation Note: Neurology History of Present Illness This is an 87 YOF with h/o migraines, seizures, HTN, and HLD who p/w reported right-sided weakness since this morning at 9:30 am. The family noted that the patient was last seen at her normal baseline at 9:15 am today. The caregiver stated that when she arrived at the patient's residence this morning, the patient was able to walk to the door to let her in unassisted. The caregiver observed her to sit up at the kitchen table unassisted and feed herself without issue at that time. Then at 9:30 am, the son arrived and together they were attempting to bring the patient to change her clothing, but the patient was unable to move her right leg or to walk. She was brought to [facility] for further evaluation and management and I was contacted by the emergency department. I spoke to the resident give me the initial evaluation including examination with NIH stroke scale of 12. Ct head was negative. The patient and family was informed of TPA possibility and elected to have further intervention. Indications and contradictions discussed. I also discussed case with Dr. Reid of [facility], cerebrovascular NSGY, who accepted patient for thrombectomy. TPA was given in ER and I was at bedside for this. Transfer being coordinated for thrombectomy. Family in agreement with above. Past History - Past Medical History Allergies/Adverse Reactions: Allergies Allergy/AdvReac Type Severity Reaction Status Date / Time codeine [Codeine] Allergy Mild Verified 07/15/17 12:42 propoxyphene HCl Allergy Mild Verified 07/15/17 12:42 [From Darvon] Home Medications: Ambulatory Orders Aspirin [ASA -] 81 mg PO DAILY 07/15/17 Atenolol [Tenormin -] 25 mg PO BID 07/15/17 Atorvastatin Calcium [Lipitor] 10 mg PO DAILY 07/15/17 Escitalopram Oxalate [Lexapro -] 20 mg PO DAILY 07/15/17 Furosemide 20 mg PO DAILY 07/15/17 Multivit-Min/Iron Fum/Folic AC [Eojlh-Oxjhqwr-Ajhewtuv Tablet] 1 each PO DAILY 07/15/17 [place]-3 Fatty Acids/Fish Oil [Fish Oil 1,000 mg Capsule] 1 each PO DAILY Potassium Chloride 10 meq PO DAILY 07/15/17 Valsartan 40 mg PO BID 07/15/17 levETIRAcetam [Keppra -] 250 mg PO BID 07/15/17 Cardiac Disorders: Yes COPD: Yes Dementia: Yes (FORGETFUL AT TIMES) HTN: Yes Hypercholesterolemia: Yes Seizures: Yes - Surgical History Cholecystectomy: Yes - Immunization History Immunization Up to Date: Yes - Suicide/Smoking/Psychosocial Hx Smoking Status: No Smoking History: Former smoker Have you smoked in the past 12 months: No Number of Cigarettes Smoked Daily: 4 If you are a former smoker, when did you quit?: 0 'Breaking Loose' booklet given: 12/11/11 Hx Alcohol Use: No Drug/Substance Use Hx: No Review of Systems - Review of Systems Able to Perform ROS?: Yes Constitutional: No: Chills, Fever, Unexplained wgt Loss HEENTM: No: Nose Congestion, Throat Pain Respiratory: No: Cough, Shortness of Breath Cardiac (ROS): No: Chest Pain, Palpitations ABD/GI: No: Constipated, Diarrhea, Nausea, Vomiting : No: Burning, Dysuria Musculoskeletal: No: Back Pain, Neck Pain Integumentary: No: Bruising, Rash Neurological: No: Headache, Numbness, Tingling, Weakness, Dizziness Endocrine: No: Unexplained Weight Gain, Unexplained Weight Loss Vital Signs Period Temp Pulse Resp BP Sys/Conner Pulse Ox Last 24 Hr 97.8 F-98 F 69-71 16-18 137-170/80-90 96-100 Gen: Awake, alert, responds to questions appropriately Card: RRR, nml S1,S2 Resp: Normal symmetric effort, lungs clear to auscultation Abdomen: Soft, nontender, bowel sounds active Head atraumatic and normocephalic CN: PERRL, EOMI intact, R facial droop, no abnormalities in facial sensation, dysarthria with word finding difficulties noted Motor: L side intact, RUE 2+/5, RLE 2-/5 Sensory: Decreased PP and Temp in RUE and RLE Reflexes: 1+ biceps, brachioradialis, patellar, achillies Coordination: Intact on xzrhdf-oskm-hhhqew testing Gait: deferred CBCD WBC 6.9 K/mm3 (4.0-10.0) 07/15/17 12:50 RBC 3.81 M/mm3 (3.60-5.2) 07/15/17 12:50 Hgb 12.6 GM/dL (10.7-15.3) 07/15/17 12:50 Hct 37.6 % (32.4-45.2) 07/15/17 12:50 MCV 98.6 fl (80-96) H 07/15/17 12:50 MCHC 33.6 g/dl (32.0-36.0) 07/15/17 12:50 RDW 12.8 % (11.6-15.6) 07/15/17 12:50 Plt Count 238 K/MM3 (134-434) 07/15/17 12:50 MPV 7.6 fl (7.5-11.1) 07/15/17 12:50 CMP Sodium 143 mmol/L (136-145) 07/15/17 12:50 Potassium 4.2 mmol/L (3.5-5.1) 07/15/17 12:50 Chloride 107 mmol/L (98-107) 07/15/17 12:50 Carbon Dioxide 32 mmol/L (21-32) 07/15/17 12:50 Anion Gap 4 (8-16) L 07/15/17 12:50 BUN 12 mg/dL (7-18) 07/15/17 12:50 Creatinine 0.8 mg/dL (0.55-1.02) 07/15/17 12:50 Creat Clearance w eGFR > 60 (>60) 07/15/17 12:50 Calcium 8.6 mg/dL (8.5-10.1) 07/15/17 12:50 Total Bilirubin 0.4 mg/dL (0.2-1.0) 07/15/17 12:50 AST 12 U/L (15-37) L 07/15/17 12:50 ALT 14 U/L (12-78) 07/15/17 12:50 Alkaline Phosphatase 77 U/L (45-117) 07/15/17 12:50 Total Protein 6.4 g/dl (6.4-8.2) 07/15/17 12:50 Albumin 3.2 g/dl (3.4-5.0) L 07/15/17 12:50 Medical Decision Making 87 YOF with h/o migraines, seizures, HTN, and HLD who p/w reported right-sided weakness since this morning at 9:30 am. The family noted that the patient was last seen at her normal baseline at 9:15 am today. The caregiver stated that when she arrived at the patient's residence this morning, the patient was able to walk to the door to let her in unassisted. The caregiver observed her to sit up at the kitchen table unassisted and feed herself without issue at that time. Then at 9:30 am, the son arrived and together they were attempting to bring the patient to change her clothing, but the patient was unable to move her right leg or to walk. She was brought to [facility] for further evaluation and management and I was contacted by the emergency department. I spoke to the resident give me the initial evaluation including examination with NIH stroke scale of 12. Ct head was negative. The patient and family was informed of TPA possibility and elected to have further intervention. Indications and contradictions discussed. I also discussed case with Dr. Reid of [facility], cerebrovascular NS, who accepted patient for thrombectomy. TPA was given in ER and I was at bedside for this. Transfer being coordinated for thrombectomy. Family in agreement with above. Monitor post TPA neuro status, CT head for any changes in exam. Blood pressure range < 160/90, goal <140/90 post TPA. Hold ASA or antiplatelt for 24 hrs. Transfer for endovascular as soon as possible. Critical care time 60 mins.
[2017-07-15 14:22] VITALS: BP 173/102
[2017-07-15 14:41] LABS: URINE APPEARANCE SLCLOUDY; URINE BILIRUBIN NEGATIVE (<2.0 mg/dL); URINE BLOOD NEGATIVE (NEGATIVE); URINE COLOR YELLOW; URINE GLUCOSE (UA) NEGATIVE (NEGATIVE); URINE KETONE NEGATIVE (NEGATIVE); URINE LEUK ESTERASE NEGATIVE (NEGATIVE); URINE NITRITE NEGATIVE (NEGATIVE); URINE PROTEIN NEGATIVE (NEGATIVE); URINE UROBILINOGEN NEGATIVE mg/dL (0.2-1.0)
--- NOTE | 2017-07-15 15:08 | EKG ---
Test Reason : Blood Pressure : / mmHG Vent. Rate : 069 BPM Atrial Rate : 069 BPM P-R Int : 176 ms QRS Dur : 098 ms QT Int : 442 ms P-R-T Axes : 055 -12 012 degrees QTc Int : 473 ms NORMAL SINUS RHYTHM VOLTAGE CRITERIA FOR LEFT VENTRICULAR HYPERTROPHY ABNORMAL ECG WHEN COMPARED WITH ECG OF 18-JUN-2016 21:28, NO SIGNIFICANT CHANGE WAS FOUND Confirmed by NICOLE SARAVIA MD ([id number]) on 07/15/2017 3:07:43 PM Referred By: Confirmed By:NICOLE SARAVIA MD
== END 2017-07-15 14:29 | disposition short-term general hospital (02) ==
LOC: JER 12:24
PROC: 3E03317 Introduction of Other Thrombolytic into Peripheral Vein, Percutaneous Approach (ICD-10-PCS; principal; 2017-07-15)
PROC: 3E0337Z Introduction of Electrolytic and Water Balance Substance into Peripheral Vein, Percutaneous Approach (ICD-10-PCS; 2017-07-15)
PROC: 3E03317 Introduction of Other Thrombolytic into Peripheral Vein, Percutaneous Approach (ICD-10-PCS; 2017-07-15)
PROC: 3E03317 Introduction of Other Thrombolytic into Peripheral Vein, Percutaneous Approach (ICD-10-PCS; 2017-07-15)
DX: I63.9 Cerebral infarction, unspecified (principal); I10 Essential (primary) hypertension; E78.00 Pure hypercholesterolemia, unspecified; G43.909 Migraine, unspecified, not intractable, without status migrainosus; G40.909 Epilepsy, unspecified, not intractable, without status epilepticus; F03.90 Unspecified dementia, unspecified severity, without behavioral disturbance, psychotic disturbance, mood disturbance, and anxiety; Z87.891 Personal history of nicotine dependence; Z79.82 Long term (current) use of aspirin
CPT/HCPCS: 36415; 70450-TC; 80053; 81003; 82465; 82550; 83718; 83721; 84478; 84484; 85025; 85610; 87086; 93005; 93010; 96361; 96374; 99285-25; J2997; J7030

== ENCOUNTER 2018-06-13 20:41 | Emergency (ER) | payer OTHER ==
[2018-06-13] MEDS ORDERED: ASPIRIN 81 MG CHEWABLE TABLETS PO ONE (20:51)
--- NOTE | 2018-06-13 20:53 | PDOC ---
Rapid Medical Evaluation Time Seen by Provider: 06/13/18 20:48 Medical Evaluation: Allergies Allergy/AdvReac Type Severity Reaction Status Date / Time codeine [Codeine] Allergy Mild Verified 07/15/17 12:42 propoxyphene HCl Allergy Mild Verified 07/15/17 12:42 [From Darvon] 06/13/18 20:50 I have performed a brief in-person evaluation of this patient. 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 06/13/18 20:52 Discharge Disposition - Diagnosis SOB (shortness of breath) - Referrals - Patient Instructions - Post Discharge Activity
[2018-06-13 20:55] VITALS: BMI 28.8
[2018-06-13] MEDS ORDERED: ASPIRIN 81 MG CHEWABLE TABLETS ONE (21:16)
[2018-06-13 22:39] LABS: BASO % 0.7 % (0-2.0); EOS % 2.9 % (0-4.5); HEMATOCRIT 36.2 % (32.4-45.2); HEMOGLOBIN 12.6 GM/dL (10.7-15.3); LYMPH % 29.4 % (8-40); MCH 35.7 pg (25.7-33.7); MCHC 34.7 g/dl (32.0-36.0); MEAN CELL VOLUME 102.9 fl (80-96); MEAN PLT VOLUME 7.2 fl (7.5-11.1); MONO % 11.7 % (3.8-10.2); NEUT % 55.3 % (42.8-82.8); PLATELET COUNT 216 K/MM3 (134-434); RBC 3.52 M/mm3 (3.60-5.2); RDW 11.9 % (11.6-15.6); WHITE BLOOD COUNT 7.2 K/mm3 (4.0-10.0)
--- NOTE | 2018-06-13 23:01 | PDOC ---
History of Present Illness <DameonStuart - Last Filed: 06/14/18 02:00> - History of Present Illness Initial Comments: The pt is an 88F w/ a history of CVA, HTN, HLD, COPD who presents for evaluation for epigastric queeziness/fluttering that radiated into her chest for approximately 1 hour. Pt denies associated symptoms. Reports that the sensation has since resolved, denied feeling chest pain. Denies recent illness, fevers/chills, current chest pain/SOB; Denies abdominal pain, vomiting, diarrhea, dysuria, hematuria, or changes in sensation 06/13/18 22:44 <NataliiaTad - Last Filed: 06/14/18 02:21> - General Chief Complaint: Palpitations Stated Complaint: BLOOD PRESURE LOW Time Seen by Provider: 06/13/18 20:48 Past History <DameonStuart - Last Filed: 06/14/18 02:00> - Past Medical History Cardiac Disorders: Yes CVA: Yes COPD: Yes Dementia: Yes (FORGETFUL AT TIMES) HTN: Yes Hypercholesterolemia: Yes Seizures: Yes - Surgical History Cholecystectomy: Yes - Immunization History Immunization Up to Date: Yes - Suicide/Smoking/Psychosocial Hx Smoking Status: No Smoking History: Unknown if ever smoked Have you smoked in the past 12 months: No Number of Cigarettes Smoked Daily: 4 If you are a former smoker, when did you quit?: 0 'Breaking Loose' booklet given: 12/11/11 Hx Alcohol Use: No Drug/Substance Use Hx: No Substance Use Type: None <NataliiaTad - Last Filed: 06/14/18 02:21> - Past Medical History Allergies/Adverse Reactions: Allergies Allergy/AdvReac Type Severity Reaction Status Date / Time codeine [Codeine] Allergy Mild Verified 07/15/17 12:42 propoxyphene HCl Allergy Mild Verified 07/15/17 12:42 [From Darvon] Home Medications: Ambulatory Orders Aspirin [ASA -] 81 mg PO DAILY 07/15/17 Atenolol [Tenormin -] 25 mg PO BID 07/15/17 Atorvastatin Calcium [Lipitor] 20 mg PO DAILY 07/15/17 levETIRAcetam [Keppra -] 250 mg PO BID 07/15/17 Isoniazid 100 mg PO DAILY 06/13/18 Review of Systems - Review of Systems Able to Perform ROS?: Yes Comments:: GENERAL/CONSTITUTIONAL: No fever or chills. No weakness HEAD, EYES, EARS, NOSE AND THROAT: No change in vision or hearing; No sore throat CARDIOVASCULAR: No chest pain or shortness of breath RESPIRATORY: Denies cough, hemoptysis GASTROINTESTINAL: No vomiting, diarrhea GENITOURINARY: No dysuria, frequency, or change in urination MUSCULOSKELETAL: No joint or muscle swelling or pain. No neck or back pain SKIN: No rash NEUROLOGIC: No headache, vertigo, loss of consciousness, or change in strength/ sensation ENDOCRINE: No increased thirst. No abnormal weight change HEMATOLOGIC/LYMPHATIC: No anemia, easy bleeding, or history of blood clots ALLERGIC/IMMUNOLOGIC: No hives or skin allergy 06/13/18 23:01 Is the patient limited Taiwanese proficient: No <Tad William - Last Filed: 06/14/18 02:21> *Physical Exam - Vital Signs Last Vital Signs Temp Pulse Resp BP Pulse Ox 97.9 F 78 20 171/81 H 99 06/13/18 20:50 06/13/18 22:51 06/13/18 22:51 06/13/18 22:51 06/13/18 22:51 <Ou,Stuart - Last Filed: 06/14/18 02:00> - Vital Signs Last Vital Signs Temp Pulse Resp BP Pulse Ox 97.9 F 77 20 175/82 H 98 06/13/18 20:50 06/13/18 20:50 06/13/18 20:50 06/13/18 20:50 06/13/18 20:50 - Physical Exam Comments: GENERAL: Awake, alert, and oriented to person/place/time, in no acute distress HEAD: No signs of trauma, normocephalic, atraumatic EYES: PERRLA, EOMI, sclera anicteric, conjunctiva clear; s/p R intraocular lens replacement ENT: Hearing grossly normal, nares patent, oropharynx clear without exudates. Moist mucosa LUNGS: No distress, speaks full sentences, clear to auscultation bilaterally HEART: Regular rate and rhythm, normal S1 and S2, no murmurs appreciated, peripheral pulses normal and equal bilaterally ABDOMEN: Soft, nontender, normoactive bowel sounds. No guarding, no rebound EXTREMITIES: Normal inspection, Normal range of motion, no edema. No clubbing or cyanosis NEUROLOGICAL: Cranial nerves II through XII grossly intact. Normal speech, no focal sensorimotor deficits SKIN: Warm, Dry, normal turgor, no rashes or lesions noted 06/13/18 23:02 <Tad William - Last Filed: 06/14/18 02:21> Moderate Sedation - Procedure Monitoring Vital Signs: Procedure Monitoring Vital Signs Temperature 97.9 F 06/13/18 20:50 Pulse Rate 78 06/13/18 22:51 Respiratory Rate 20 06/13/18 22:51 Blood Pressure 171/81 H 06/13/18 22:51 O2 Sat by Pulse Oximetry (%) 99 06/13/18 22:51 <Stuart Xiao - Last Filed: 06/14/18 02:00> - Procedure Monitoring Vital Signs: Procedure Monitoring Vital Signs Temperature 97.9 F 06/13/18 20:50 Pulse Rate 77 06/13/18 20:50 Respiratory Rate 20 06/13/18 20:50 Blood Pressure 175/82 H 06/13/18 20:50 O2 Sat by Pulse Oximetry (%) 98 06/13/18 20:50 <Tad William - Last Filed: 06/14/18 02:21> ED Treatment Course - LABORATORY CBC & Chemistry Diagram: 06/13/18 22:25 06/13/18 22:25 - ADDITIONAL ORDERS Additional order review: Laboratory Results 06/14/18 06/13/18 06/13/18 00:45 22:25 22:25 PT with INR 13.10 H INR 1.11 H Sodium 139 Potassium 4.2 Chloride 106 Carbon Dioxide 30 Anion Gap 3 L BUN 13 Creatinine 0.7 Creat Clearance w eGFR 79.34 Random Glucose 115 H Calcium 8.6 Magnesium 2.2 Total Bilirubin 0.4 AST 12 L ALT 14 Alkaline Phosphatase 66 Creatine Kinase 50 Troponin I 0.04 0.04 Total Protein 6.3 L Albumin 3.2 L 06/13/18 22:25 RBC 3.52 L MCV 102.9 H MCHC 34.7 RDW 11.9 MPV 7.2 L Neutrophils % 55.3 Lymphocytes % 29.4 Monocytes % 11.7 H Eosinophils % 2.9 Basophils % 0.7 - Medications Given in the ED: ED Medications Discontinued Medications Generic Name Dose Route Start Last Admin Trade Name Freq PRN Reason Stop Dose Admin Aspirin 162 mg 06/13/18 20:51 06/13/18 21:18 Asa - PO 06/13/18 20:52 162 mg ONCE ONE Administration <Stuart Xiao - Last Filed: 06/14/18 02:00> - LABORATORY CBC & Chemistry Diagram: 06/13/18 22:25 06/13/18 22:25 - ADDITIONAL ORDERS Additional order review: 06/13/18 22:25 RBC 3.52 L MCV 102.9 H MCHC 34.7 RDW 11.9 MPV 7.2 L Neutrophils % 55.3 Lymphocytes % 29.4 Monocytes % 11.7 H Eosinophils % 2.9 Basophils % 0.7 - Medications Given in the ED: ED Medications Discontinued Medications Generic Name Dose Route Start Last Admin Trade Name Freq PRN Reason Stop Dose Admin Aspirin 162 mg 06/13/18 20:51 06/13/18 21:18 Asa - PO 06/13/18 20:52 162 mg ONCE ONE Administration <Tad William - Last Filed: 06/14/18 02:21> Medical Decision Making - Medical Decision Making The pt is an 88F w/ a history of previous CVA, HTN, HLD, and COPD who presents for evaluation of 1 hour of epigastric queasiness and 'fluttering' which has since resolved Trop I neg No leukocytosis No anemia ECG similar to previous Lytes wnl No URIEL LFTs wnl 06/13/18 23:17 Pt denies any symptoms at this time. Appears comfortable in bed. Daughters at bedside. Pt and family updated on results thus far 06/14/18 00:56 Trop neg x2 Pt continues to be asymptomatic Plan for D/C w/ PCP and Cardiology f/u Discharge instructions and return precautions given Pt in agreement and verbalized understanding Dispo: home 06/14/18 02:17 <Tad William - Last Filed: 06/14/18 02:21> *DC/Admit/Observation/Transfer <Stuart Xiao - Last Filed: 06/14/18 02:00> - Discharge Dispostion Decision to Admit order: No <Tad William - Last Filed: 06/14/18 02:21> Diagnosis at time of Disposition: SOB (shortness of breath), Palpitations - Discharge Dispostion Disposition: HOME Condition at time of disposition: Improved - Referrals Referrals: Andreas Carranza MD [Primary Care Provider] - Miguel Pardo MD [Staff Physician] - - Patient Instructions Printed Discharge Instructions: DI for Palpitations Additional Instructions: You were seen in the Emergency Department for evaluation of epigastric discomfort/fluttering. Your labs were unremarkable. Review the handout provided at discharge. Follow up with your primary care provider and [facility] V[facility] within a week. Return to the Emergency Department if you develop fevers/chills, chest pain, trouble breathing, vomiting, change in vision, worsening symptoms, or any new/concerning symptoms. You also need to have your blood pressure re-checked by your primary doctor, as it was slightly elevated today. Uncontrolled blood pressure can eventually lead to kidney disease, heart disease, other serious illness, disability, or even . - Post Discharge Activity
[2018-06-13 23:15] LABS: ALBUMIN 3.2 g/dl (3.4-5.0); ALK PHOS 66 U/L (45-117); ANION GAP 3 MMOL/L (8-16); BILIRUBIN,TOTAL 0.4 mg/dL (0.2-1); BLOOD UREA NITROGEN 13 mg/dL (7-18); CALCIUM 8.6 mg/dL (8.5-10.1); CHLORIDE 106 mmol/L (98-107); CO2 30 mmol/L (21-32); CREATININE 0.7 mg/dL (0.55-1.3); GLUCOSE,RANDOM 115 mg/dL (74-106); MAGNESIUM 2.2 mg/dL (1.8-2.4); POTASSIUM 4.2 mmol/L (3.5-5.1); SGOT/AST 12 U/L (15-37); SGPT/ALT 14 U/L (13-61); SODIUM 139 mmol/L (136-145); TOT PROT 6.3 g/dl (6.4-8.2)
[2018-06-13 23:29] LABS: INR 1.11 (0.83-1.09); PROTHROMBIN TIME (PATIENT) 13.1 SEC (9.7-13.0)
--- NOTE | 2018-06-14 00:43 | PDOC ---
Attending Attestation - Resident Resident Name: Tad William - ED Attending Attestation I have performed the following: I have examined & evaluated the patient, The case was reviewed & discussed with the resident, I agree w/resident's findings & plan, Exceptions are as noted - HPI HPI: 06/14/18 00:40 The patient is a 89 year old female, with a significant past medical history of COPD, HTN, HLD, Dementia, Pneumonia, CVA (last one 1 year ago), seizure disorder (on keppra) of who presents to the emergency department with 1 hour of "queasiness" and epigastric discomfort. She states that her symptoms started just after eating dinner and lasted a few minutes. As per patient her symptoms have since resolved. The patient denies chest pain, SOB, lightheadedness, fever , chills, nausea, diarrhea. The patient denies dysuria, frequency, urgency or hematuria. Allergies: NKDA Past surgical history: Social history: No tobacco use (quit a few years ago). No alcohol use. PCP: Dr. Andreas Carranza - Physicial Exam PE: 06/14/18 00:41 GENERAL: Awake, alert, and fully oriented, in no acute distress. HEAD: No signs of trauma EYES: PERRLA, EOMI, sclera anicteric, conjunctiva clear ENT: Auricles normal inspection, hearing grossly normal, nares patent, oropharynx clear without exudates. Moist mucosa NECK: Nontender, no stepoffs, Normal ROM, supple, no lymphadenopathy, JVD, or masses LUNGS: Breath sounds equal, clear to auscultation bilaterally. No wheezes, and no crackles HEART: Regular rate and rhythm, normal S1 and S2, no murmurs, rubs or gallops ABDOMEN: Soft, nontender, normoactive bowel sounds. No guarding, no rebound. No masses EXTREMITIES: Normal range of motion, no edema. No clubbing or cyanosis. No cords, erythema, or tenderness NEUROLOGICAL: Cranial nerves II through XII intact. 5/5 strength and sensation in all extremities, Normal speech, normal gait, normal cerebellar function SKIN: Warm, Dry, normal turgor, no rashes or lesions noted. - Medical Decision Making 06/14/18 00:42 88 F with epigastric discomfort and queasiness after eating, now resolved. Pt with benign exam. EKG unremarkable but will r/o ACS with 2 trops. - labs, trop x2 - GI cocktail 06/14/18 01:56 Labs wnl Trop negative x2 Pt is well appearing, with normal vitals. Clinically stable for DC at this time. I discussed the physical exam findings, ancillary test results and final diagnoses with the patient. I answered all of the patient's questions. The patient was satisfied with the care received and felt comfortable with the discharge plan and treatment plan. The patient agrees to follow up with the primary care physician within 24-72 hours.
[2018-06-14 02:26] VITALS: BP 170/94; PULSE 74; TEMP 98.5
--- NOTE | 2018-06-15 23:52 | EKG ---
Test Reason : Blood Pressure : / mmHG Vent. Rate : 077 BPM Atrial Rate : 077 BPM P-R Int : 164 ms QRS Dur : 098 ms QT Int : 420 ms P-R-T Axes : 071 007 025 degrees QTc Int : 475 ms POOR DATA QUALITY, INTERPRETATION MAY BE ADVERSELY AFFECTED NORMAL SINUS RHYTHM POSSIBLE LEFT ATRIAL ENLARGEMENT LEFT VENTRICULAR HYPERTROPHY ABNORMAL ECG WHEN COMPARED WITH ECG OF 15-JUL-2017 12:59, NONSPECIFIC T WAVE ABNORMALITY NO LONGER EVIDENT IN LATERAL LEADS Confirmed by MEREDITH FONTANEZ MD ([id number]) on 06/15/2018 11:52:44 PM Referred By: Confirmed By:MEREDITH FONTANEZ MD
== END 2018-06-14 02:34 | disposition home or self-care (01) ==
LOC: JER 20:41
DX: R06.02 Shortness of breath (principal); R00.2 Palpitations; I10 Essential (primary) hypertension; E78.5 Hyperlipidemia, unspecified; J44.9 Chronic obstructive pulmonary disease, unspecified; Z86.73 Personal history of transient ischemic attack (TIA), and cerebral infarction without residual deficits
CPT/HCPCS: 36415; 71046-TC-FY; 80053; 82550; 83735; 84484; 85025; 85610; 93005; 93010; 99282-25

== ENCOUNTER 2019-07-15 10:06 | Emergency (ER) | payer OTHER ==
[2019-07-15 10:42] VITALS: BMI 25.0
[2019-07-15 11:46] LABS: BASO % 0.4 % (0-2.0); EOS % 1.9 % (0-4.5); HEMATOCRIT 38.9 % (32.4-45.2); HEMOGLOBIN 13.3 GM/dL (10.7-15.3); MEAN CELL VOLUME 102.7 fl (80-96); MEAN PLT VOLUME 7.4 fl (7.5-11.1); MONO % 8.9 % (3.8-10.2); NEUT % 69.8 % (42.8-82.8); PLATELET COUNT 244 K/MM3 (134-434); RBC 3.79 M/mm3 (3.60-5.2); RDW 11.9 % (11.6-15.6); WHITE BLOOD COUNT 9.1 K/mm3 (4.0-10.0)
[2019-07-15 12:11] LABS: ALBUMIN 3.4 g/dl (3.4-5.0); ALK PHOS 74 U/L (45-117); ANION GAP 5 MMOL/L (8-16); BILIRUBIN,TOTAL 0.5 mg/dL (0.2-1); BLOOD UREA NITROGEN 10.7 mg/dL (7-18); CALCIUM 8.4 mg/dL (8.5-10.1); CHLORIDE 107 mmol/L (98-107); CO2 30 mmol/L (21-32); GLUCOSE,RANDOM 151 mg/dL (74-106); SGOT/AST 15 U/L (15-37); SGPT/ALT 16 U/L (13-61); SODIUM 142 mmol/L (136-145); TOT PROT 6.6 g/dl (6.4-8.2)
[2019-07-15 12:37] LABS: INR 1.15 (0.83-1.09); PROTHROMBIN TIME (PATIENT) 13.6 SEC (9.7-13.0)
[2019-07-15 12:40] LABS: ACTIVATED PTT 30.1 SECONDS (25.2-36.5)
[2019-07-15 13:19] LABS: EPI CELLS 35 /uL (0-25.1); HYALINE CASTS 22 /uL (0-3.1); URINE APPEARANCE CLOUDY; URINE BACTERIA 19 /uL (0-1359); URINE BILIRUBIN 1+ (NEGATIVE); URINE COLOR DK YELLOW; URINE GLUCOSE (UA) NEGATIVE (NEGATIVE); URINE KETONE TRACE (NEGATIVE); URINE LEUK ESTERASE NEGATIVE (NEGATIVE); URINE NITRITE NEGATIVE (NEGATIVE); URINE PROTEIN 2+ (NEGATIVE); URINE RBC 83 /uL (0-23.9); URINE WBC 10 /uL (0-25.8)
[2019-07-15 16:00] VITALS: TEMP 98
[2019-07-15] MEDS ORDERED: SODIUM CHLORIDE 500 ML IV STA ×2 (16:47→18:31)
[2019-07-15] MEDS ORDERED: AZITHROMYCIN 250 MG TABLET PO ONE (18:33)
[2019-07-15] MEDS ORDERED: AZITHROMYCIN 250 MG TABLET ONE (19:37)
[2019-07-15 20:55] VITALS: BP 186/103; PULSE 74
== END 2019-07-16 00:18 | disposition home or self-care (01) ==
LOC: JER 10:06
PROC: 3E0337Z Introduction of Electrolytic and Water Balance Substance into Peripheral Vein, Percutaneous Approach (ICD-10-PCS; principal; 2019-07-15)
DX: J18.9 Pneumonia, unspecified organism (principal)
CPT/HCPCS: 36415; 70450-TC; 71045-TC-FY; 80053; 81003; 84484; 85025; 85610; 85730; 87086; 93005; 93010; 96360; 96361; 99285-25